=== PATIENT | male | born 1995 | race Caucasian/White ===

== ENCOUNTER 2018-08-27 21:08 | Inpatient (IN) | payer OTHER ==
[~2018-08-27] VITALS: Ht 165.1 cm; Wt 101.2 kg
[2018-08-27] MEDS ORDERED: LEXA1TAB2 PO ×2 (21:12→22:48)
[2018-08-27 21:51] LABS: HEMATOCRIT 43.3 % (42.0-52.0); HEMOGLOBIN 13.4 g/dl (13.5-17.5); MEAN CORPUSCULAR HGB CONC 30.9 g/dl (32.0-36.5); PLATELET COUNT, AUTOMATED 280 10^3/uL (150-450)
[2018-08-27 22:17] LABS: AMPHETAMINES LEVEL URINE NEGATIVE (NEGATIVE); BARBITURATES URINE NEGATIVE (NEGATIVE); BENZODIAZEPINES URINE NEGATIVE (NEGATIVE); CANNABINOIDS URINE NEGATIVE (NEGATIVE); COCAINE METABOLITE URINE NEGATIVE (NEGATIVE); METHADONE URINE NEGATIVE (NEGATIVE); OPIATES URINE NEGATIVE (NEGATIVE); PHENCYCLIDINE URINE NEGATIVE (NEGATIVE)
[2018-08-27 22:27] LABS: ACETAMINOPHEN LEVEL < 2.0 UG/ML (10.0-30.0); ALBUMIN 3.5 GM/DL (3.2-5.2); ALT/SGPT 55 U/L (12-78); BILIRUBIN,DIRECT < 0.1 MG/DL (0.0-0.2); BILIRUBIN,TOTAL 0.2 MG/DL (0.2-1.0); BLOOD UREA NITROGEN 21 MG/DL (7-18); CALCIUM LEVEL 8.9 MG/DL (8.5-10.1); CARBON DIOXIDE LEVEL 28 MEQ/L (21-32); CHLORIDE LEVEL 108 MEQ/L (98-107); CREATININE FOR GFR 1.06 MG/DL (0.70-1.30); ETHYL ALCOHOL (ETHANOL) < 0.003 % (0.000-0.010); GLOMERULAR FILTRATION RATE > 60.0 (>60); GLUCOSE, FASTING 99 MG/DL (70-100); POTASSIUM SERUM 4.4 MEQ/L (3.5-5.1); SALICYLATE LEVEL < 1.7 MG/DL (5.0-30.0); SODIUM LEVEL 143 MEQ/L (136-145); TOTAL PROTEIN 6.5 GM/DL (6.4-8.2)
[2018-08-27] MEDS ORDERED: VENTAER INH (22:48)
[2018-08-27] MEDS ORDERED: FLON1SPR (22:48)
[2018-08-27] MEDS ORDERED: MUCI30TA5 PO (22:48)
[2018-08-27] MEDS ORDERED: CLAR10TA7 PO (22:48)
[2018-08-27] MEDS ORDERED: MAALOX 30 ML SUSP *UDC PO PRN (23:00)
[2018-08-27 23:25] VITALS: BP 119/77
[2018-08-28 06:13] VITALS: BP 106/60
[2018-08-28] MEDS ORDERED: ESCITALOPRAM OXALATE 10 MG TAB (LEXAPRO) PO SCH (09:00)
--- NOTE | 2018-08-28 09:41 | HPEPDOC ---
General Date of Admission Aug 27, 2018 at 22:49 Date of Service: Aug 28, 2018 Attending Physician: DANIEL PICKARD MD Chief Complaint The patient is a 23-year-old male admitted with a reason for visit of Unspecified Depressive Disorder. History of Present Illness Patient is a 23 yo male presenting with depression and suicidal ideation. Patient reports thoughts of taking a whole bottle of his wifes medication- trazodone. On evaluation, he complains only of a left knee pain, which she has had now for 6-7 months. He is prescribed physical therapy treatments by the . He otherwise denies chest pain, weakness, shortness of breath. Home Medications Scheduled Escitalopram Oxalate (Lexapro) 20 Mg Tablet, 20 MG PO DAILY, (Reported) Guaifenesin/Dextromethorphan (Mucinex Dm ER 600-30 mg Tablet) 1 Each Tab.er.12h, 2 TAB PO BID, (Reported) Loratadine (Claritin) 10 Mg Tablet, 10 MG PO DAILY, (Reported) Scheduled PRN Albuterol Sulfate (Ventolin Hfa) 18 Gm Hfa.aer.ad, 2 PUFF INH QID PRN for SHORTNESS OF BREATH, (Reported) Fluticasone Propionate (Flonase Allergy Relief) 9.9 Ml [place].susp, 1 SPRAY NA BID PRN for NASAL CONGESTION, (Reported) Allergies Coded Allergies: No Known Allergies (Unverified , 08/27/18) Past Medical History Medical History Obesity Seasonal allergies Depression Surgical History Denies Family History Father: Amyloidosis, diabetes mellitus, hypertension Mother: Hypertension, hyperlipidemia Social History * Smoker: Denies Alcohol: Denies Drugs: denies A-FIB/CHADSVASC A-FIB History Current/History of A-Fib/PAF?: No Current PO Anticoag Therapy: No Review of Systems Other systems A 10 point pertinent review of systems was completed, negative except as stated in the history of presenting illness. Physical Examination Other physical findings GENERAL: NAD SKIN : Warm, dry intact HEENT: Atraumatic, normocephalic, PERRL, moist mucous membrane CARDIOVASCULAR: Regular rate and rhythm, S1S2, no JVD, no edema, distal pulses + and palpable RESP: CTAB, no accessory muscle use noted ABDOMEN: BS+ non distended non tender MS: no joint deformities NEURO: Alert and oriented x 3, CN2-12 grossly intact PSYCH: no anxiety or agitation, appropriate mood and affect. Vital Signs Vital Signs Date Time Temp Pulse Resp B/P (MAP) Pulse Ox O2 Delivery O2 Flow Rate FiO2 08/28/18 08:48 Room Air 08/28/18 06:13 98.6 56 18 106/60 (75) 08/27/18 23:25 97 Laboratory Data Labs 24H Laboratory Tests 2 08/27/18 21:41: Nucleated Red Blood Cells % (auto) 0.0, Anion Gap 7L, Glomerular Filtration Rate > 60.0, Calcium Level 8.9, Aspartate Amino Transf (AST/SGOT) 19, Alanine Aminotransferase (ALT/SGPT) 55, Alkaline Phosphatase 72, Total Bilirubin 0.2, Direct Bilirubin < 0.1, Total Protein 6.5, Albumin 3.5, Albumin/Globulin Ratio 1.17, Thyroid Stimulating Hormone (TSH) 2.020, Salicylates Level < 1.7L, Acetaminophen Level < 2.0L, Ethyl Alcohol Level < 0.003 08/27/18 21:44: Urine Amphetamines Screen NEGATIVE, Urine Benzodiazepines Screen NEGATIVE, Urine Opiates Screen NEGATIVE, Urine Methadone Screen NEGATIVE, Urine Barbiturates Screen NEGATIVE, Urine Phencyclidine Screen NEGATIVE, Urine Cocaine Metabolite Screen NEGATIVE, Urine Cannabinoids Screen NEGATIVE CBC/BMP Laboratory Tests 08/27/18 21:41 Red Blood Count 6.10, Mean Corpuscular Volume 71.0 L, Mean Corpuscular Hemoglobin 22.0 L, Mean Corpuscular Hemoglobin Concent 30.9 L, Red Cell D istribution Width 14.8 H Assessment/Plan Obesity Depression with suicidal ideation Plan Patient has no underlying medical comorbidities requiring medical follow-up and management. Management of acute presenting symptoms and psychiatric problems by primary team. Reconsult medical team as needed Plan / VTE VTE Prophylaxis Ordered?: No VTE Exclusion Mechanical Proph: Low Risk for VTE STONE GANDHI Aug 28, 2018 09:41
[2018-08-28] MEDS: guaiFENesin ER 600 MG TAB PO SCH ×2 (13:23→20:49)
--- NOTE | 2018-08-28 15:35 | ECGEPIP ---
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
[2018-08-28 18:00] VITALS: BP 112/57
[2018-08-28] MEDS: traZODone 50 MG TAB PO PRN (20:49)
[2018-08-29 06:30] VITALS: BP 115/58
[2018-08-29] MEDS: guaiFENesin ER 600 MG TAB PO SCH ×2 (09:16→20:17)
[2018-08-29] MEDS: ESCITALOPRAM OXALATE 10 MG TAB (LEXAPRO) PO SCH (09:16)
[2018-08-29 18:09] VITALS: BP 116/61
--- NOTE | 2018-08-29 19:29 | REP ---
PA and lateral chest: There are no comparisons. The lung joy are clear. The cardiac size is normal. The aaron, mediastinum, and skeletal structures are unremarkable. Impression: Negative PA and lateral chest. Electronically Signed by Colin Yen MD 08/29/2018 07:20 P
[2018-08-29] MEDS: ARIPiprazole 2 MG TAB PO SCH (20:18)
[2018-08-29] MEDS: traZODone 50 MG TAB PO PRN (20:18)
--- NOTE | 2018-08-29 23:59 | MHHPEPDOC ---
General Date Of Admission: Aug 27, 2018 Legal Status: 9.39 Chief Complaint Increasing depression with SI over financial, marital and work stressors History of Present Illness HISTORY OF THE PRESENT ILLNESS: Patient is a 23 -year-old , male, who, according to ED report: "Pt. reports he has been feeling depressed for past 6-7 months, more so within last month with vague SI until today when he actually thought of taking overdose and had wifes Trazadone bottle of pills in his hand. He states he agreed to come to ER and did not take overdose. He reports he did take 2 Trazadone to help him sleep , stating he does occassionally take wifes Trazadone for sleep. Pt. reports depression/stress due to job. 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 pt. states she has noticed a difference in pt. emotional state, stating he hasbeen very sad and depressed. Pt. denies other stressors. He states he did go to [facility] 2 weeks ago and was prescrbed Lexapro, stating he has been taking it as prescribed" Psychiatric Review of Systems Depression (2 or more weeks): depressed mood, anhedonia (he enjoyed working out nd playing games, watching movies but he doesn't do it anymore, he just lays down and thinks about how he can cope with it), insomnia/hypersomnia, feelings of excess/guilt, feelings of worthlesness (hopeles and helpless besides feeling worthless sometimes but not all the time. he has feelings of worthlessness because everything he does is not enough), decreased energy, appetite changes ("I overate"), psychomotor changes (feels sluggish sometimes), suicidal thoughts Demi (4 or more days of): grandiosity (He says "i knew I was the best but I never looked down onto people"), decreased need for sleep (He says about 1.5 years ago, before joining the he used to have a lot of energy and was able to go without sleep at night and still was able to function next day), still with energy, engages in risky behavior (He had "a lot of unprotected sex" 9he has been tested for STD's) Psychosis: denies PTSD: denies Anxiety: gen/non-specific anxiety, situational anxiety, stressor related anxiety Anxiety/ 6 months or more of: restlessness, keyed up, easily fatigued, irritability, sleep disturbance Past Psychiatric History Previous Psychiatric Diagnosis: Denies Previous Psychiatric Admissions: Denies Suicide Attempts: Denies. he came this time to [facility] because he was about to take Trazodone (his 's medication) but she caught him. he sya he only took 2 tabs Psychiatric Follow-up: He just started going to [facility] 2 weeks ago Psychiatric medications: Lexapro. Past Medical History Medical Problems He thinks he has asthma and bronchitis Head Injury: No Seizures: No Hospitalizations: No Surgeries: No Family Medical/Psychiatric HX Medical Problems Dad passd away in 2016, he had amyloidosis. mom is diabetic, has HTN and [id number]. Dad also had diabetes, high cholesterol and had CHF. Psychiatric Disorders: No Addiction: No Suicide Attemps/Completions: No Addiction History alcohol (very seldom) Social History Childhood: He says his childhood was nice, he grew up with both parents. he has an older brother and they get along. 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 Social Support: , mom, brother, friends Legal: Denies Marital: mariied, he has 3 children from a previous relationship Mental Status Examination General Appearance: well groomed, ds/not appear stated age (looks older), hospital scubs/clothing Build: overweight Demeanor: average, preoccupied Eye Contact: average Activity: anxious Behavior: cooperative Speech: clear, spontaneous, reg/rate,rhythm,volume Mood: depressed, anxious Affect: constricted, congruent, anxious, other (depressed) Thought Process: logical/linear Thought Content (Delusions): none reported Thought Content (Other): none reported Thought Content (Aggressive): none reported Perception (Hallucinations): none reported Perception (Other): none reported Cognition (Impairment of): none reported Cognition(Intelligence Est.): average Oriented: Awake, Alert, Oriented times three Insight: fair Judgment: Poor Psychosis: Denies A-FIB/CHADSVASC A-FIB History Current/History of A-Fib/PAF?: No Current PO Anticoag Therapy: No Age/Risk Factor Scoring CHADSVASC: CHADSVASC Response (Comments) Value Age Risk Factor Age < 65 years old 0 Gender Risk Factor Male 0 Hx of CHF No 0 Hx of HTN No 0 Hx of Stroke/TIA/or VTE No 0 Hx of Diabetes No 0 Hx of Vascular Disease No 0 Total 0 Treatment Treatment ordered: NONE Reason Anticoagulant not given: Not indicated/[id number] Assessment Patient is very depressed, he is hopless, helpless. He has been having problems with his because she can't trust him due to the fact that he has cheated on her several times. 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 He has been receiving Lexapro 20 mgs po daily but she doesn't feel any improvement ( he has used it only for 2 weeks) Initial Treatment Plan 1. Patient was admitted on a [9.39] status. 2. Complete history was obtained. 3. With patients permission, family will be contacted and database will be expanded. 4. Patients medication regimen will be reviewed and changed accordingly. 5. Patient will be provided with protected environment. 6. Patient will be treated with individual, group, and milieu therapies. 7. Patient will receive supportive psych-education. 8. Discharge planning will commence immediately. 9. Outpatient follow-up treatment will be strongly recommended. 10. The initial treatment plan will focus initially on: * Depression. * Anxiety * Risk for suicide. * Substance abuse. ESTIMATED LENGTH OF STAY: 5-7 DAYS. TIME SPENT COUNSELING AND COORDINATING INITIAL CARE: 70 minutes. Vital Signs Vital Signs Date Time Temp Pulse Resp B/P (MAP) Pulse Ox O2 Delivery O2 Flow Rate FiO2 08/28/18 08:48 Room Air 08/28/18 06:13 98.6 56 18 106/60 (75) 08/27/18 23:25 97 Laboratory Data 24H Labs Laboratory Tests 2 08/27/18 21:41: Nucleated Red Blood Cells % (auto) 0.0, Anion Gap 7L, Glomerular Filtration Rate > 60.0, Calcium Level 8.9, Aspartate Amino Transf (AST/SGOT) 19, Alanine Aminotransferase (ALT/SGPT) 55, Alkaline Phosphatase 72, Total Bilirubin 0.2, Direct Bilirubin < 0.1, Total Protein 6.5, Albumin 3.5, Albumin/Globulin Ratio 1.17, Thyroid Stimulating Hormone (TSH) 2.020, Salicylates Level < 1.7L, Acetaminophen Level < 2.0L, Ethyl Alcohol Level < 0.003 08/27/18 21:44: Urine Amphetamines Screen NEGATIVE, Urine Benzodiazepines Screen NEGATIVE, Urine Opiates Screen NEGATIVE, Urine Methadone Screen NEGATIVE, Urine Barbiturates Screen NEGATIVE, Urine Phencyclidine Screen NEGATIVE, Urine Cocaine Metabolite Screen NEGATIVE, Urine Cannabinoids Screen NEGATIVE CBC/BMP Laboratory Tests 08/27/18 21:41 Red Blood Count 6.10, Mean Corpuscular Volume 71.0 L, Mean Corpuscular Hemoglobin 22.0 L, Mean Corpuscular Hemoglobin Concent 30.9 L, Red Cell Distribution Width 14.8 H Medications Scheduled Escitalopram Oxalate (Lexapro) 20 Mg Tablet, 20 MG PO DAILY, (Reported) Guaifenesin/Dextromethorphan (Mucinex Dm ER 600-30 mg Tablet) 1 Each Tab.er.12h, 2 TAB PO BID, (Reported) Loratadine (Claritin) 10 Mg Tablet, 10 MG PO DAILY, (Reported) Scheduled PRN Albuterol Sulfate (Ventolin Hfa) 18 Gm Hfa.aer.ad, 2 PUFF INH QID PRN for SHORTNESS OF BREATH, (Reported) Fluticasone Propionate (Flonase Allergy Relief) 9.9 Ml [place].susp, 1 SPRAY NA BID PRN for NASAL CONGESTION, (Reported) Allergies Coded Allergies: No Known Allergies (Unverified , 08/27/18) RYANN COFFMAN MD Aug 28, 2018 13:07
--- NOTE | 2018-08-30 00:10 | MHIPNPDOC ---
[facility] Progress Note Progress Note DATE OF SERVICE: 08/29/18 HISTORY: Chief Complaint Increasing depression with SI over financial, marital and work stressors History of Present Illness HISTORY OF THE PRESENT ILLNESS: Patient is a 23 -year-old , male, who, according to ED report: "Pt. reports he has been feeling depressed for past 6-7 months, more so within last month with vague SI until today when he actually thought of taking overdose and had wifes Trazadone bottle of pills in his hand. He states he agreed to come to ER and did not take overdose. He reports he did take 2 Trazadone to help him sleep , stating he does occassionally take wifes Trazadone for sleep. Pt. reports depression/stress due to job. 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 pt. states she has noticed a difference in pt. emotional state, stating he hasbeen very sad and depressed. Pt. denies other stressors. He states he did go to [facility] 2 weeks ago and was prescrbed Lexapro, stating he has been taking it as prescribed" VITAL SIGNS: See below. NEW TEST RESULTS: See below CURRENT MEDICATIONS: See below. MENTAL STATUS EXAMINATION: General Appearance: well groomed, ds/not appear stated age (looks older), hospital scubs/clothing Build: overweight Demeanor: average, preoccupied, sad Eye Contact: average/avoidant Activity: cam sitting on his chair, paying attention to our conversation. Receptive, cooperative Behavior: cooperative Speech: clear, spontaneous, reg/rate,rhythm,volume Mood: depressed, anxious Affect: constricted, congruent, anxious, other (depressed) Thought Process: logical/linear Thought Content (Delusions): none reported Thought Content (Other): none reported Thought Content (Aggressive): none reported Perception (Hallucinations): none reported Perception (Other): none reported Cognition (Impairment of): none reported Cognition(Intelligence Est.): average Oriented: Awake, Alert, Oriented times three Insight: fair Judgment: Poor Psychosis: Denies DIAGNOSES: 1. Unspecified mood disorder, r/o bipolar 2 disorder 2. Generalized Anxiety disorder 3. Unspecified trauma/stressor disorder 4. Bereavement ASSESSMENT: The patient sys that he feels as if he is getting worse because he has had time to think about his problems. he says his doesn't trust him because he has cheated on her multiple times. He considers he is a sex addict, he says his father was unfaithful, had multiple women and he thought that was normal he identified with his dad. He says he decided to get because he started dating his and her fter a short dating period (4 months) because he felt lonely and sad after his dad . The patient seems to fulfill criteria for timoteo, although it seems more hypomania. I discussed starting treatment with [facility] as a buster for his AD and he agreed to it. he is very depressed. MANAGEMENT PLAN: As above TIME SPENT: 30 minutes. Vital Signs Vital Signs Date Time Temp Pulse Resp B/P (MAP) Pulse Ox O2 Delivery O2 Flow Rate FiO2 08/29/18 18:09 98.0 72 18 116/61 (79) 08/29/18 08:10 Room Air 08/27/18 23:25 97 Current Medications Current Medications Acetaminophen (Tylenol Tab) 650 mg Q6HP PRN PO HEADACHE or DISCOMFORT; Start 08/27/18 at 23:00 Al Hydrox/Mg Hydrox/Simethicone (Mylanta) 30 ml Q4HP PRN PO HEARTBURN/INDIGESTION; Start 08/27/18 at 23:00 Aripiprazole (AbiLIFY) 2 mg BID PO Last administered on 08/29/18at 20:18; Start 08/29/18 at 21:00 Escitalopram Oxalate (Lexapro) 20 mg DAILY PO Last administered on 08/28/18at 13:23; Start 08/28/18 at 09:00; Stop 08/28/18 at 13:42; Status DC Escitalopram Oxalate (Lexapro) 30 mg DAILY PO Last administered on 08/29/18at 09:16; Start 08/29/18 at 09:00 Guaifenesin (Mucinex Tab Er) 600 mg BID PO Last administered on 08/29/18at 20:17; Start 08/28/18 at 09:00 Home Med (Med Rec Complete!) ASDIRECTED XX ; Start 08/27/18 at 23:00; Stop 08/27/18 at 23:00; Status DC Magnesium Hydroxide (Milk Of Magnesia) 30 ml DAILYPRN PRN PO CONSTIPATION; Start 08/27/18 at 23:00 Trazodone HCl (Desyrel) 50 mg QHSP PRN PO INSOMNIA Last administered on 08/29/18at 20:18; Start 08/27/18 at 23:00 Allergies Coded Allergies: No Known Allergies (Unverified , 08/27/18) RYANN COFFMAN MD Aug 30, 2018 00:00
[2018-08-30 06:43] VITALS: BP 121/59
[2018-08-30] MEDS: ESCITALOPRAM OXALATE 10 MG TAB (LEXAPRO) PO SCH (08:35)
[2018-08-30] MEDS: guaiFENesin ER 600 MG TAB PO SCH ×2 (08:35→20:20)
[2018-08-30] MEDS: ARIPiprazole 2 MG TAB PO SCH ×2 (08:35→20:21)
[2018-08-30 18:00] VITALS: BP 115/54
[2018-08-30] MEDS: traZODone 50 MG TAB PO PRN (20:20)
--- NOTE | 2018-08-30 22:42 | MHIPNPDOC ---
[facility] Progress Note Progress Note DATE OF SERVICE: 08/30/18 Patient is a 23 -year-old , male, who, according to ED report: "Pt. reports he has been feeling depressed for past 6-7 months, more so within last month with vague SI until today when he actually thought of taking overdose and had wifes Trazadone bottle of pills in his hand. He states he agreed to come to ER and did not take overdose. He reports he did take 2 Trazadone to help him sleep , stating he does occassionally take wifes Trazadone for sleep. Pt. reports depression/stress due to job. 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 pt. states she has noticed a difference in pt. emotional state, stating he hasbeen very sad and depressed. Pt. denies other stressors. He states he did go to [facility] 2 weeks ago and was prescrbed Lexapro, stating he has been taking it as prescribed" VITAL SIGNS: See below. NEW TEST RESULTS: See below CURRENT MEDICATIONS: See below. MENTAL STATUS EXAMINATION: General Appearance: well groomed, ds/not appear stated age (looks older), hospital scrubs/clothing Build: overweight Demeanor: Cooperative Eye Contact: average/avoidant Activity: calm sitting on his chair, receptive,looking sad Behavior: cooperative Speech: clear, spontaneous, reg/rate,rhythm,volume Mood: depressed, anxious Affect: constricted, congruent, anxious, other (depressed) Thought Process: logical/linear Thought Content (Delusions): none reported Thought Content (Other): none reported Thought Content (Aggressive): none reported Perception (Hallucinations): none reported Perception (Other): none reported Cognition (Impairment of): none reported Cognition(Intelligence Est.): average Oriented: Awake, Alert, Oriented times three Insight: fair Judgment: Poor Psychosis: Denies DIAGNOSES: 1. Unspecified mood disorder, r/o bipolar 2 disorder 2. Generalized Anxiety disorder 3. Unspecified trauma/stressor disorder 4. Bereavement ASSESSMENT: Mental status exam has not changed much since yesterday. Spoke about his marriage, recommended to go to marital counseling. No medications side effects were reported. Denies SI, HI, AV hallucinations, delusions MANAGEMENT PLAN: Continue Lexapro and Abilify TIME SPENT: 30 minutes. Vital Signs Vital Signs Date Time Temp Pulse Resp B/P (MAP) Pulse Ox O2 Delivery O2 Flow Rate FiO2 08/30/18 18:00 98.4 73 16 115/54 (74) 08/29/18 08:10 Room Air 08/27/18 23:25 97 Current Medications Current Medications Acetaminophen (Tylenol Tab) 650 mg Q6HP PRN PO HEADACHE or DISCOMFORT; Start 08/27/18 at 23:00 Al Hydrox/Mg Hydrox/Simethicone (Mylanta) 30 ml Q4HP PRN PO HEARTB URN/INDIGESTION; Start 08/27/18 at 23:00 Aripiprazole (AbiLIFY) 2 mg BID PO Last administered on 08/30/18at 20:21; Start 08/29/18 at 21:00 Escitalopram Oxalate (Lexapro) 20 mg DAILY PO Last administered on 08/28/18at 13:23; Start 08/28/18 at 09:00; Stop 08/28/18 at 13:42; Status DC Escitalopram Oxalate (Lexapro) 30 mg DAILY PO Last administered on 08/30/18at 08:35; Start 08/29/18 at 09:00 Guaifenesin (Mucinex Tab Er) 600 mg BID PO Last administered on 08/30/18at 20:20; Start 08/28/18 at 09:00 Home Med (Med Rec Complete!) ASDIRECTED XX ; Start 08/27/18 at 23:00; Stop 08/27/18 at 23:00; Status DC Magnesium Hydroxide (Milk Of Magnesia) 30 ml DAILYPRN PRN PO CONSTIPATION; Start 08/27/18 at 23:00 Trazodone HCl (Desyrel) 50 mg QHSP PRN PO INSOMNIA Last administered on 08/30/18at 20:20; Start 08/27/18 at 23:00 Allergies Coded Allergies: No Known Allergies (Unverified , 08/27/18) RYANN COFFMAN MD Aug 30, 2018 22:42
[2018-08-31 07:13] VITALS: BP 95/56
[2018-08-31] MEDS: ESCITALOPRAM OXALATE 10 MG TAB (LEXAPRO) PO SCH (09:21)
[2018-08-31] MEDS: ARIPiprazole 2 MG TAB PO SCH ×2 (09:21→20:46)
[2018-08-31] MEDS: guaiFENesin ER 600 MG TAB PO SCH ×2 (09:21→20:46)
[2018-08-31 18:17] VITALS: BP 111/56
[2018-08-31] MEDS: traZODone 50 MG TAB PO PRN (22:24)
--- NOTE | 2018-08-31 23:15 | MHIPNPDOC ---
[facility] Progress Note Progress Note DATE OF SERVICE: 08/31/18 Patient is a 23 -year-old , male, who, according to ED report: "Pt. reports he has been feeling depressed for past 6-7 months, more so within last month with vague SI until today when he actually thought of taking overdose and had wifes Trazadone bottle of pills in his hand. He states he agreed to come to ER and did not take overdose. He reports he did take 2 Trazadone to help him sleep , stating he does occassionally take wifes Trazadone for sleep. Pt. reports depression/stress due to job. 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 pt. states she has noticed a difference in pt. emotional state, stating he hasbeen very sad and depressed. Pt. denies other stressors. He states he did go to [facility] 2 weeks ago and was prescrbed Lexapro, stating he has been taking it as prescribed" VITAL SIGNS: See below. NEW TEST RESULTS: See below CURRENT MEDICATIONS: See below. MENTAL STATUS EXAMINATION: General Appearance: well groomed, ds/not appear stated age (looks older), hospital scrubs/clothing Build: overweight Demeanor: Cooperative Eye Contact: average/avoidant Activity: calm sitting on his chair, receptive,looking sad Behavior: cooperative Speech: clear, spontaneous, reg/rate,rhythm,volume Mood: depressed, anxious Affect: constricted, congruent, anxious, other (depressed) Thought Process: logical/linear Thought Content (Delusions): none reported Thought Content (Other): none reported Thought Content (Aggressive): none reported Perception (Hallucinations): none reported Perception (Other): none reported Cognition (Impairment of): none reported Cognition(Intelligence Est.): average Oriented: Awake, Alert, Oriented times three Insight: fair Judgment: Poor Psychosis: Denies DIAGNOSES: 1. Unspecified mood disorder, r/o bipolar 2 disorder 2. Generalized Anxiety disorder 3. Unspecified trauma/stressor disorder 4. Bereavement ASSESSMENT: Yousef is still depressed, I will increase his Abilify to 5 mgs Po QHS and 2 mgs Po QAM. He is more insightful, has attended some groups. If he doesn't show much improvement, I think he would be a candidate fo [facility] care if [facility] and his MARIELY agrees to it. MANAGEMENT PLAN: Continue Lexapro and Abilify TIME SPENT: 30 minutes. Vital Signs Vital Signs Date Time Temp Pulse Resp B/P (MAP) Pulse Ox O2 Delivery O2 Flow Rate FiO2 08/31/18 18:17 98.7 71 18 111/56 (74) 08/29/18 08:10 Room Air 08/27/18 23:25 97 Current Medications Current Medications Acetaminophen (Tylenol Tab) 650 mg Q6HP PRN PO HEADACHE or DISCOMFORT; Start 08/27/18 at 23:00 Al Hydrox/Mg Hydrox/Simethicone (Mylanta) 30 ml Q4HP PRN PO HEARTBURN/INDIGESTION; Start 08/27/18 at 23:00 Aripiprazole (AbiLIFY) 2 mg BID PO Last administered on 08/31/18at 20:46; Start 08/29/18 at 21:00 Escitalopram Oxalate (Lexapro) 20 mg DAILY PO Last administered on 08/28/18at 13:23; Start 08/28/18 at 09:00; Stop 08/28/18 at 13:42; Status DC Escitalopram Oxalate (Lexapro) 30 mg DAILY PO Last administered on 08/31/18at 09:21; Start 08/29/18 at 09:00 Guaifenesin (Mucinex Tab Er) 600 mg BID PO Last administered on 08/31/18at 20:46; Start 08/28/18 at 09:00 Home Med (Med Rec Complete!) ASDIRECTED XX ; Start 08/27/18 at 23:00; Stop 08/27/18 at 23:00; Status DC Magnesium Hydroxide (Milk Of Magnesia) 30 ml DAILYPRN PRN PO CONSTIPATION; Start 08/27/18 at 23:00 Trazodone HCl (Desyrel) 50 mg QHSP PRN PO INSOMNIA Last administered on 08/31/18at 22:24; Start 08/27/18 at 23:00 Allergies Coded Allergies: No Known Allergies (Unverified , 08/27/18) RYANN COFFMAN MD Aug 31, 2018 23:15
[2018-09-01 06:40] VITALS: BP 97/51
[2018-09-01] MEDS: guaiFENesin ER 600 MG TAB PO SCH ×2 (09:12→20:24)
[2018-09-01] MEDS: ESCITALOPRAM OXALATE 10 MG TAB (LEXAPRO) PO SCH (09:12)
[2018-09-01 18:00] VITALS: BP 136/65
[2018-09-01] MEDS: traZODone 50 MG TAB PO PRN (20:24)
[2018-09-02 06:42] VITALS: BP 100/59
[2018-09-02] MEDS: guaiFENesin ER 600 MG TAB PO SCH ×2 (09:03→20:49)
[2018-09-02] MEDS: ESCITALOPRAM OXALATE 10 MG TAB (LEXAPRO) PO SCH (09:04)
[2018-09-02 18:00] VITALS: BP 134/64
[2018-09-02] MEDS: traZODone 50 MG TAB PO PRN (20:49)
[2018-09-03 06:55] VITALS: BP 105/51
[2018-09-03] MEDS: guaiFENesin ER 600 MG TAB PO SCH ×2 (08:53→21:37)
[2018-09-03] MEDS: ESCITALOPRAM OXALATE 10 MG TAB (LEXAPRO) PO SCH (08:53)
[2018-09-03 18:18] VITALS: BP 120/70
[2018-09-03] MEDS: traZODone 50 MG TAB PO PRN (21:37)
[2018-09-04 06:41] VITALS: BP 111/54
--- NOTE | 2018-09-04 08:17 | MHIPNPDOC ---
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 Interval History The patient met with today. His history's explored as well as the symptoms that have brought him to the inpatient unit. Discussion and counseling is given as well as reflective listening towards his experience with the as well as the core of his depression. He describes having great loss of interest, fatigue, motivation problems and concentration focus deficits as well as suicidal thoughts that have remained resistant to treatment at this time. He reports that the current medication has not done much to clear the symptoms. He's been attempting to go to groups and has been attending some no behavioral outbursts on the unit. Review Of Systems Depression: As above. Anxiety: The patient reports excessive worry and constant worry about the future related to his job. This's a point, where he feels irritated and keyed up constantly. Demi: The patient demonstrates no signs or symptoms of demi on the unit. Psychotic: The patient demonstrates no signs or symptoms of demi on the unit. Normal review. Vital Signs Reviewed. Mental Status Examination General: Mildly disheveled Speech: Spontaneous and fluid Thought processes: Pessimistic MSK: Smooth and coordinated gait, no signs of tremors or involuntary orofacial movements Thought content: Future orientated Abstract reasoning, and computation: Intact Description of associations: Intact Description of abnormal or psychotic thoughts: Admits to suicidal thoughts without a plan at this time. Denies homicidal ideation. Judgment: Fair to poor Insight: Fair to poor Orientation: Alert and orientated 3 Cognition: Grossly normal Recent and remote memory: Intact Attention span and concentration: Intact Fund of knowledge: Adequate Mood: "Bad" Affect: Profoundly dysthymic with restricted/blunt affect Diagnoses MDD, severe without psychotic features or recurrent: Worsening. Body dysmorphia: Worsening. Assessment and Plan The patient is a 23-year-old man with a history of severe depression due to psychosocial stressors as well as complex internalization of body image standards, is currently worsening as medication regimen will likely need a medication change to address this. Discontinue Abilify daytime dose 2.5, continue nighttime dose of 5 mg at this time. Continue Lexapro 30 mg at this time, despite that the patient reports some side effects of erectile problems and libido changes on it as well as headaches. We'll look to discontinue and titrate off. Start Wellbutrin 150 mg extended-release daily. Discussed the risks, benefits as well as potential side effects, both common and rare. The patient was given this option among others and selected it. Disposition The patient will need further inpatient treatment to address his severe depression and suicidal thoughts. Time Spent 45 minutes of [id number] time with greater than 50% counseling/coordination of care. Vital Signs Vital Signs Date Time Temp Pulse Resp B/P (MAP) Pulse Ox O2 Delivery O2 Flow Rate FiO2 09/03/18 18:18 97.7 84 16 120/70 (87) 08/29/18 08:10 Room Air Current Medications Current Medications Acetaminophen (Tylenol Tab) 650 mg Q6HP PRN PO HEADACHE or DISCOMFORT; Start 08/27/18 at 23:00 Al Hydrox/Mg Hydrox/Simethicone (Mylanta) 30 ml Q4HP PRN PO HEARTBURN/IN DIGESTION; Start 08/27/18 at 23:00 Aripiprazole (AbiLIFY) 2 mg BID PO Last administered on 08/31/18at 20:46; Start 08/29/18 at 21:00; Stop 08/31/18 at 23:24; Status DC Aripiprazole (AbiLIFY) 2.5 mg QAM PO Last administered on 09/03/18at 08:53; Start 09/01/18 at 09:00; Stop 09/03/18 at 18:22; Status DC Aripiprazole (AbiLIFY) 5 mg QHS PO Last administered on 09/02/18at 20:49; Start 09/01/18 at 21:00 Bupropion HCl (Wellbutrin Xl) 150 mg DAILY PO ; Start 09/04/18 at 09:00 Escitalopram Oxalate (Lexapro) 20 mg DAILY PO Last administered on 08/28/18at 13:23; Start 08/28/18 at 09:00; Stop 08/28/18 at 13:42; Status DC Escitalopram Oxalate (Lexapro) 30 mg DAILY PO Last administered on 09/03/18at 08:53; Start 08/29/18 at 09:00 Guaifenesin (Mucinex Tab Er) 600 mg BID PO Last administered on 09/03/18at 08:53; Start 08/28/18 at 09:00 Home Med (Med Rec Complete!) ASDIRECTED XX ; Start 08/27/18 at 23:00; Stop 08/27/18 at 23:00; Status DC Magnesium Hydroxide (Milk Of Magnesia) 30 ml DAILYPRN PRN PO CONSTIPATION; Start 08/27/18 at 23:00 Trazodone HCl (Desyrel) 50 mg QHSP PRN PO INSOMNIA Last administered on 09/02/18at 20:49; Start 08/27/18 at 23:00 Allergies Coded Allergies: No Known Allergies (Unverified , 08/27/18) ACOSTA WONG DO Sep 03, 2018 19:29
[2018-09-04] MEDS: guaiFENesin ER 600 MG TAB PO SCH ×2 (09:20→22:35)
[2018-09-04] MEDS: buPROPion **XL** TABLET 150MG (WELLBUTRIN XL) PO SCH (09:20)
[2018-09-04] MEDS: ESCITALOPRAM OXALATE 10 MG TAB (LEXAPRO) PO SCH (09:20)
[2018-09-04] MEDS ORDERED: PHENYLEPHRINE 0.25% NASAL SPR 15 ML PRN (16:45)
--- NOTE | 2018-09-04 17:02 | MHIPNPDOC ---
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 Interval History The patient was met with today where he describes his sleep was somewhat more restful this evening, but he still has great difficulty with loss of interest, f atigue and anhedonia. He has not tried the Wellbutrin yet and has been discontinued on the Abilify for the morning dose. 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 Currently he would do well in a long-term treatment facility as his depression will take some time to resolve. Review Of Systems Depression: As above. Demi: The patient demonstrates no signs or symptoms of demi on the unit. Psychotic: The patient demonstrates no signs or symptoms of demi on the unit. Patient denies any tremors or other side effects of medication not elucidated on this previous note. Vital Signs Reviewed. Mental Status Examination General: Mildly disheveled Speech: Spontaneous and fluid Thought processes: Pessimistic MSK: Smooth and coordinated gait, no signs of tremors or involuntary orofacial movements Thought content: Future orientated Abstract reasoning, and computation: Intact Description of associations: Intact Description of abnormal or psychotic thoughts: Admits to suicidal thoughts without a plan at this time. Denies homicidal ideation. Judgment: Fair to poor Insight: Fair to poor Orientation: Alert and orientated 3 Cognition: Grossly normal Recent and remote memory: Intact Attention span and concentration: Intact Fund of knowledge: Adequate Mood: "Bad" Affect: Profoundly dysthymic with restricted/blunt affect Diagnoses MDD, severe without psychotic features or recurrent: Worsening. Body dysmorphia: Worsening. Assessment and Plan The patient is a 23-year-old man with a history of severe depression due to psychosocial stressors as well as complex internalization of body image stand ards, is currently worsening as medication regimen will likely need a medication change to address this. Continue wellbutrin 150mg daily, cut QHS of abilify to 2.5mg nightly Time Spent 15 mins Vital Signs Vital Signs Date Time Temp Pulse Resp B/P (MAP) Pulse Ox O2 Delivery O2 Flow Rate FiO2 09/04/18 06:41 97.6 66 18 111/54 (73) 08/29/18 08:10 Room Air Current Medications Current Medications Acetaminophen (Tylenol Tab) 650 mg Q6HP PRN PO HEADACHE or DISCOMFORT; Start 08/27/18 at 23:00 Al Hydrox/Mg Hydrox/Simethicone (Mylanta) 30 ml Q4HP PRN PO HEARTBURN/INDIGESTION; Start 08/27/18 at 23:00 Aripiprazole (AbiLIFY) 2 mg BID PO Last administered on 08/31/18at 20:46; Start 08/29/18 at 21:00; Stop 08/31/18 at 23:24; Status DC Aripiprazole (AbiLIFY) 2.5 mg QAM PO Last administered on 09/03/18at 08:53; Start 09/01/18 at 09:00; Stop 09/03/18 at 18:22; Status DC Aripiprazole (AbiLIFY) 2.5 mg QHS PO ; Start 09/04/18 at 21:00 Aripiprazole (AbiLIFY) 5 mg QHS PO Last administered on 09/03/18at 21:37; Start 09/01/18 at 21:00; Stop 09/04/18 at 09:04; Status DC Bupropion HCl (Wellbutrin Xl) 150 mg DAILY PO Last administered on 09/04/18at 09:20; Start 09/04/18 at 09:00 Escitalopram Oxalate (Lexapro) 20 mg DAILY PO Last administered on 08/28/18at 13:23; Start 08/28/18 at 09:00; Stop 08/28/18 at 13:42; Status DC Escitalopram Oxalate (Lexapro) 30 mg DAILY PO Last administered on 09/04/18 09:20; Start 08/29/18 at 09:00 Guaifenesin (Mucinex Tab Er) 600 mg BID PO Last administered on 09/04/18at 09:20; Start 08/28/18 at 09:00 Home Med (Med Rec Complete!) ASDIRECTED XX ; Start 08/27/18 at 23:00; Stop 08/27/18 at 23:00; Status DC Magnesium Hydroxide (Milk Of Magnesia) 30 ml DAILYPRN PRN PO CONSTIPATION; Start 08/27/18 at 23:00 Phenylephrine HCl (Neosynephrine 0.25% Nasal [place]) 2 spray Q4HP PRN NA NASAL CONGESTION; Start 09/04/18 at 16:45 Trazodone HCl (Desyrel) 50 mg QHSP PRN PO INSOMNIA Last administered on 09/03/18at 21:37; Start 08/27/18 at 23:00 Allergies Coded Allergies: No Known Allergies (Unverified , 08/27/18) ACOSTA WONG DO Sep 04, 2018 17:02
[2018-09-04 18:00] VITALS: BP 141/73
[2018-09-04 19:39] VITALS: BP 141/73
[2018-09-04] MEDS: traZODone 50 MG TAB PO PRN (22:36)
[2018-09-05 06:00] VITALS: BP 103/59
--- NOTE | 2018-09-05 07:56 | MHIPNPDOC ---
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 Interval History The patient's met with today. He describes his depression is improving somewhat with the start of the Wellbutrin. He notes a headache yesterday and has noticed some difficulty starting his urinary stream since trying the Wellbutrin for day 2. He is unsure if this is related, he does report having unprotected sex with his prior to coming into the unit and consents a urinalysis and GC/Chlamydia screen. The patient will discuss and inform his provider if it changes. His outpatient behavioral health team wishes this provider to do psychometric testing as his case is fairly complex and wouldn't help justify long-term treatment at his current juncture. The patient is very amenable to this and it is highly indicated. Review Of Systems Patient continues to endorse depressed mood with fatigue and loss of Interest as well as excessive worry about his life and his ability to attend the needs. Psychotherapy None at this visit Vital Signs Reviewed. Mental Status Examination General: Mildly disheveled Speech: Spontaneous and fluid Thought processes: Pessimistic MSK: Smooth and coordinated gait, no signs of tremors or involuntary orofacial movements Thought content: Future orientated Abstract reasoning, and computation: Intact Description of associations: Intact Description of abnormal or psychotic thoughts: Admits to suicidal thoughts without a plan at this time. Denies homicidal ideation. Judgment: Fair to poor Insight: Fair to poor Orientation: Alert and orientated 3 Cognition: Grossly normal Recent and remote memory: Intact Attention span and concentration: Intact Fund of knowledge: Adequate Mood: "Bad" Affect: Profoundly dysthymic with restricted/blunt affect Diagnoses Major depressive disorder, severe, recurrent without psychotic features: Improving. Body dysmorphic disorder: Worsening. Assessment and Plan The patient is a 23-year-old man with a history of severe depression due to psychosocial stressors as well as complex internalization of body image standards, is currently worsening as medication regimen will likely need a medication change to address this. The patient will be increased to 300 mg of Wellbutrin extended-release daily wit h monitoring of urinary function, urinalysis in GC/chlamydia ordered. Will discontinue Abilify 2.5 mg QHS this time, is likely unhelpful. Continuing Lexapro 30 mg daily at this time, but potential to change will perform psychometric evaluation in the next few days given the request from [facility]. Disposition The patient will need further inpatient treatment to address his severe depression and suicidal thoughts. Time Spent 15 min of [id number] time spent. Vital Signs Vital Signs Date Time Temp Pulse Resp B/P (MAP) Pulse Ox O2 Delivery O2 Flow Rate FiO2 09/05/18 06:00 97.2 64 12 103/59 (74) 09/04/18 19:39 97 Current Medications Current Medications Acetaminophen (Tylenol Tab) 650 mg Q6HP PRN PO HEADACHE or DISCOMFORT; Start 08/27/18 at 23:00 Al Hydrox/Mg Hydrox/Simethicone (Mylanta) 30 ml Q4HP PRN PO HEARTBURN/INDIGESTION; Start 08/27/18 at 23:00 Aripiprazole (AbiLIFY) 2 mg BID PO Last administered on 08/31/18at 20:46; Start 08/29/18 at 21:00; Stop 08/31/18 at 23:24; Status DC Aripiprazole (AbiLIFY) 2.5 mg QAM PO Last administered on 09/03/18at 08:53; Start 09/01/18 at 09:00; Stop 09/03/18 at 18:22; Status DC Aripiprazole (AbiLIFY) 2.5 mg QHS PO Last administered on 09/04/18at 22:35; Start 09/04/18 at 21:00 Aripiprazole (AbiLIFY) 5 mg QHS PO Last administered on 09/03/18at 21:37; Start 09/01/18 at 21:00; Stop 09/04/18 at 09:04; Status DC Bupropion HCl (Wellbutrin Xl) 150 mg DAILY PO Last administered on 09/04/18at 09:20; Start 09/04/18 at 09:00 Escitalopram Oxalate (Lexapro) 20 mg DAILY PO Last administered on 08/28/18at 13:23; Start 08/28/18 at 09:00; Stop 08/28/18 at 13:42; Status DC Escitalopram Oxalate (Lexapro) 30 mg DAILY PO Last administered on 09/04/18at 09:20; Start 08/29/18 at 09:00 Guaifenesin (Mucinex Tab Er) 600 mg BID PO Last administered on 09/04/18at 22:35; Start 08/28/18 at 09:00 Home Med (Med Rec Complete!) ASDIRECTED XX ; Start 08/27/18 at 23:00; Stop 08/27/18 at 23:00; Status DC Magnesium Hydroxide (Milk Of Magnesia) 30 ml DAILYPRN PRN PO CONSTIPATION; Start 08/27/18 at 23:00 Phenylephrine HCl (Neosynephrine 0.25% Nasal [place]) 2 spray Q4HP PRN NA NASAL CONGESTION; Start 09/04/18 at 16:45 Trazodone HCl (Desyrel) 50 mg QHSP PRN PO INSOMNIA Last administered on 09/04/18at 22:36; Start 08/27/18 at 23:00 Allergies Coded Allergies: No Known Allergies (Unverified , 08/27/18) ACOSTA WONG DO Sep 05, 2018 07:56
[2018-09-05] MEDS: guaiFENesin ER 600 MG TAB PO SCH ×2 (08:49→20:54)
[2018-09-05] MEDS: buPROPion **XL** TABLET 150MG (WELLBUTRIN XL) PO SCH (08:49)
[2018-09-05] MEDS: ESCITALOPRAM OXALATE 10 MG TAB (LEXAPRO) PO SCH (08:49)
[2018-09-05] MEDS: ACETAMINOPHEN TAB 650MG DOSE (2X325MG) PO PRN (09:38)
[2018-09-05] MEDS ORDERED: FEXOFENADINE 60 MG TAB PO ONE (12:30)
[2018-09-05 18:16] VITALS: BP 112/50
[2018-09-06] MEDS: traZODone 50 MG TAB PO PRN ×2 (00:04→23:10)
--- NOTE | 2018-09-06 05:51 | MHIPNPDOC ---
[facility] Progress Note Progress Note DATE OF SERVICE: 09/06/18 HISTORY: . VITAL SIGNS: See below. NEW TEST RESULTS: . CURRENT MEDICATIONS: See below. MENTAL STATUS EXAMINATION: Patient is a -year old male, who is . Speech: Is . Language skills are . Thought processes including: . Thought content: . Abstract reasoning, and computation: . Description of associa tions: . Description of abnormal or psychotic thoughts: . Judgment: . Insight: [very limited, good, fair. poor]. Orientation: . Recent and remote memory: . Attention span and concentration: . Language: . Fund of knowledge: . Mood: . Affect: . DIAGNOSES: 1. . 2. . 3. . ASSESSMENT: MANAGEMENT PLAN: . TIME SPENT: minutes. Vital Signs Vital Signs Date Time Temp Pulse Resp B/P (MAP) Pulse Ox O2 Delivery O2 Flow Rate FiO2 09/05/18 18:16 98.2 75 16 112/50 (70) 09/04/18 19:39 97 Current Medications Current Medications Acetaminophen (Tylenol Tab) 650 mg Q6HP PRN PO HEADACHE or DISCOMFORT Last administered on 09/05/18at 09:38; Start 08/27/18 at 23:00 Al Hydrox/Mg Hydrox/Simethicone (Mylanta) 30 ml Q4HP PRN PO HEARTBURN/INDIGESTION; Start 08/27/18 at 23:00 Aripiprazole (AbiLIFY) 2 mg BID PO Last administered on 08/31/18at 20:46; Start 08/29/18 at 21:00; Stop 08/31/18 at 23:24; Status DC Aripiprazole (AbiLIFY) 2.5 mg QAM PO Last administered on 09/03/18at 08:53; Start 09/01/18 at 09:00; Stop 09/03/18 at 18:22; Status DC Aripiprazole (AbiLIFY) 2.5 mg QHS PO Last administered on 09/04/18at 22:35; Start 09/04/18 at 21:00; Stop 09/05/18 at 12:27; Status DC Aripiprazole (AbiLIFY) 5 mg QHS PO Last administered on 09/03/18at 21:37; Start 09/01/18 at 21:00; Stop 09/04/18 at 09:04; Status DC Bupropion HCl (Wellbutrin Xl) 150 mg DAILY PO Last administered on 09/05/18at 08:49; Start 09/04/18 at 09:00; Stop 09/05/18 at 12:27; Status DC Bupropion HCl (Wellbutrin Xl) 300 mg DAILY PO ; Start 09/06/18 at 09:00 Escitalopram Oxalate (Lexapro) 20 mg DAILY PO Last administered on 08/28/18at 13:23; Start 08/28/18 at 09:00; Stop 08/28/18 at 13:42; Status DC Escitalopram Oxalate (Lexapro) 30 mg DAILY PO Last administered on 09/05/18at 08:49; Start 08/29/18 at 09:00 Fexofenadine HCl (Sho) 180 mg QAM PO ; Start 09/06/18 at 09:00 Guaifenesin (Mucinex Tab Er) 600 mg BID PO Last administered on 09/05/18at 20:54; Start 08/28/18 at 09:00 Home Med (Med Rec Complete!) ASDIRECTED XX ; Start 08/27/18 at 23:00; Stop 08/27/18 at 23:00; Status DC Magnesium Hydroxide (Milk Of Magnesia) 30 ml DAILYPRN PRN PO CONSTIPATION; Start 08/27/18 at 23:00 Phenylephrine HCl (Neosynephrine 0.25% Nasal [place]) 2 spray Q4HP PRN NA NASAL CONGESTION; Start 09/04/18 at 16:45 Trazodone HCl (Desyrel) 50 mg QHSP PRN PO INSOMNIA Last administered on 09/06/18at 00:04; Start 08/27/18 at 23:00 Allergies Coded Allergies: No Known Allergies (Unverified , 08/27/18) ACOSTA WONG DO Sep 06, 2018 05:51
[2018-09-06 06:28] VITALS: BP 104/52
[2018-09-06] MEDS: guaiFENesin ER 600 MG TAB PO SCH ×2 (09:12→21:05)
[2018-09-06] MEDS: ESCITALOPRAM OXALATE 10 MG TAB (LEXAPRO) PO SCH (09:12)
[2018-09-06] MEDS: buPROPion **XL** TABLET 150MG (WELLBUTRIN XL) PO SCH (09:12)
[2018-09-06] MEDS: FEXOFENADINE 60 MG TAB PO SCH (09:12)
[2018-09-06 15:28] LABS: APPEARANCE, URINE CLEAR (CLEAR); BACTERIA, URINE AUTO NEGATIVE (NEGATIVE); BILIRUBIN, URINE AUTO NEGATIVE (NEGATIVE); BLOOD, URINE BLOOD NEGATIVE (NEGATIVE); COLOR, URINE YELLOW (YELLOW); GLUCOSE, URINE (UA) AUTO NEGATIVE (NEGATIVE); KETONE, URINE AUTO NEGATIVE (NEGATIVE); LEUKOCYTE ESTERASE, URINE AUTO NEGATIVE (NEGATIVE); MUCUS, URINE SMALL (NEGATIVE); NITRITE, URINE AUTO NEGATIVE (NEGATIVE); PROTEIN, URINE AUTO NEGATIVE (NEGATIVE); RBC, URINE AUTO 0 /HPF (0-3); SPECIFIC GRAVITY URINE AUTO 1.026 (1.002-1.035); SQUAMOUS EPITHELIAL CELL UR AU 0 /HPF (0-6); WBC, URINE AUTO 1 /HPF (0-3)
[2018-09-06 16:45] LABS: CHLAMYDIA DNA AMPLIFICATION NEGATIVE (NEGATIVE); GC DNA AMPLIFICATION NEGATIVE (NEGATIVE)
[2018-09-06] MEDS: ACETAMINOPHEN TAB 650MG DOSE (2X325MG) PO PRN (17:21)
[2018-09-06 18:05] VITALS: BP 105/59
[2018-09-07 06:00] VITALS: BP 125/55
[2018-09-07] MEDS: ESCITALOPRAM OXALATE 10 MG TAB (LEXAPRO) PO SCH (09:24)
[2018-09-07] MEDS: buPROPion **XL** TABLET 150MG (WELLBUTRIN XL) PO SCH (09:24)
[2018-09-07] MEDS: guaiFENesin ER 600 MG TAB PO SCH ×2 (09:24→20:49)
[2018-09-07] MEDS: FEXOFENADINE 60 MG TAB PO SCH (09:25)
--- NOTE | 2018-09-07 12:52 | MHIPNPDOC ---
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 Interval History Patient has met with today. He describes that he has been attempting to socialize. He has been noted to be socializing with others better. He reports that the Wellbutrin is somewhat helpful for his depression, but he does note that he feels much more irritable at times and anxious. At other times, he has been socializing well without any problems on the unit. Review Of Systems Denies any dysuria or urinary symptoms at this time. Reports mild improvement in low mood but does report some increased anxiety/irritability since starting the Wellbutrin at 300. Psychotherapy None on this visit. Vital Signs Reviewed. Mental Status Examination The patient has met with in the office. His hygiene is fair. He is dressed in street clothes. His affect is less dysthymic from previous with a improved range. Thought process linear. Denies any suicidal ideation at this time. Denies any homicidal ideation, auditory hallucinations or paranoid thought content. No psychomotor changes. Cognition grossly intact. Concentration and attention intact. Fund of knowledge adequate. Recent, remote and distant memory intact. Judgment and insight improving. Mood "better." Diagnoses Major depressive disorder disorder, severe without psychotic features:improving Worsening new paragraph body dysmorphic disorder: worsening. Assessment and Plan The patient is a 23-year-old man with a history of severe depression due to psychosocial stressors as well as complex internalization of body image standards, is currently worsening as medication regimen will likely need a [facility] change to address this. The patient will be continued on Wellbutrin 300 mg of extended release daily. He is reporting some mood variation, but overall improvement of his depression. His GC, chlamydia was negative and his urinalysis was unremarkable. He reports the potential side effect of urinary hesitancy has dissipated, will continue Lexapro 30 mg at this time. Psychometric evaluation was performed partially during this visit, but will need another session in order to get the full range of testing for evaluation. The plan is still for long-term inpatient to address the really severe depression and body dysmorphia. Disposition The patient will need further inpatient treatment to address his severe depression and suicidal thoughts. Time Spent 15 mins Vital Signs Vital Signs Date Time Temp Pulse Resp B/P (MAP) Pulse Ox O2 Delivery O2 Flow Rate FiO2 09/07/18 06:00 97.7 65 16 125/55 (78) 09/04/18 19:39 97 Laboratory Data 24H Labs Laboratory Tests 2 09/06/18 15:00: Urine Appearance CLEAR, Urine Color YELLOW, Urine pH 6.0, Urine Specific [place] 1.026, Urine Protein NEGATIVE, Urine Glucose (UA) NEGATIVE, Urine Ketones NEGATIVE, Urine Urobilinogen 2.0H, Urine Bilirubin NEGATIVE, Urine Leukocyte Esterase NEGATIVE, Urine Blood NEGATIVE, Urine Nitrite NEGATIVE, Urine WBC (Auto) 1, Urine RBC (Auto) 0, Urine Hyaline Casts (Auto) 0, Urine Bacteria (Auto) NEGATIVE, Urine Squamous Epithelial Cells 0, Urine Mucus (Auto) SMALL, Urine Sperm (Auto) , Chlamydia trachomatis DNA (ANTONIO) NEGATIVE, Neisseria gonorrhoeae DNA (ANTONIO) NEGATIVE Current Medications Current Medications Acetaminophen (Tylenol Tab) 650 mg Q6HP PRN PO HEADACHE or DISCOMFORT Last administered on 09/06/18at 17:21; Start 08/27/18 at 23:00 Al Hydrox/Mg Hydrox/Simethicone (Mylanta) 30 ml Q4HP PRN PO HEARTBURN/INDIGESTION; Start 08/27/18 at 23:00 Aripiprazole (AbiLIFY) 2 mg BID PO Last administered on 08/31/18at 20:46; Start 08/29/18 at 21:00; Stop 08/31/18 at 23:24; Status DC Aripiprazole (AbiLIFY) 2.5 mg QAM PO Last administered on 09/03/18at 08:53; Start 09/01/18 at 09:00; Stop 09/03/18 at 18:22; Status DC Aripiprazole (AbiLIFY) 2.5 mg QHS PO Last administered on 09/04/18at 22:35; Start 09/04/18 at 21:00; Stop 09/05/18 at 12:27; Status DC Aripiprazole (AbiLIFY) 5 mg QHS PO Last administered on 09/03/18at 21:37; Start 09/01/18 at 21:00; Stop 09/04/18 at 09:04; Status DC Bupropion HCl (Wellbutrin Xl) 150 mg DAILY PO Last administered on 09/05/18at 08:49; Start 09/04/18 at 09:00; Stop 09/05/18 at 12:27; Status DC Bupropion HCl (Wellbutrin Xl) 300 mg DAILY PO Last administered on 09/07/18 09:24; Start 09/06/18 at 09:00 Escitalopram Oxalate (Lexapro) 20 mg DAILY PO Last administered on 08/28/18at 13:23; Start 08/28/18 at 09:00; Stop 08/28/18 at 13:42; Status DC Escitalopram Oxalate (Lexapro) 30 mg DAILY PO Last administered on 09/07/18 09:24; Start 08/29/18 at 09:00 Fexofenadine HCl (Sho) 180 mg QAM PO Last administered on 09/07/18at 09:25; Start 09/06/18 at 09:00 Guaifenesin (Mucinex Tab Er) 600 mg BID PO Last administered on 09/07/18at 09:24; Start 08/28/18 at 09:00 Home Med (Med Rec Complete!) ASDIRECTED XX ; Start 08/27/18 at 23:00; Stop 08/27/18 at 23:00; Status DC Magnesium Hydroxide (Milk Of Magnesia) 30 ml DAILYPRN PRN PO CONSTIPATION; Start 08/27/18 at 23:00 Phenylephrine HCl (Neosynephrine 0.25% Nasal [place]) 2 spray Q4HP PRN NA NASAL CONGESTION; Start 09/04/18 at 16:45 Trazodone HCl (Desyrel) 50 mg QHSP PRN PO INSOMNIA Last administered on 09/06/18at 23:10; Start 08/27/18 at 23:00 Allergies Coded Allergies: No Known Allergies (Unverified , 08/27/18) ACOSTA WONG DO Sep 07, 2018 10:20
[2018-09-07 18:00] VITALS: BP 131/63
[2018-09-07] MEDS: ACETAMINOPHEN TAB 650MG DOSE (2X325MG) PO PRN (20:50)
[2018-09-07] MEDS: traZODone 50 MG TAB PO PRN (22:49)
[2018-09-08 06:41] VITALS: BP 117/66
[2018-09-08] MEDS: buPROPion **XL** TABLET 150MG (WELLBUTRIN XL) PO SCH (08:43)
[2018-09-08] MEDS: ESCITALOPRAM OXALATE 10 MG TAB (LEXAPRO) PO SCH (08:43)
[2018-09-08] MEDS: FEXOFENADINE 60 MG TAB PO SCH (08:43)
[2018-09-08] MEDS: guaiFENesin ER 600 MG TAB PO SCH ×2 (08:43→22:52)
[2018-09-08] MEDS: ACETAMINOPHEN TAB 650MG DOSE (2X325MG) PO PRN (15:08)
[2018-09-08] MEDS: IBUPROFEN 600 MG TAB PO SCH ×2 (17:52→23:00)
[2018-09-08 18:05] VITALS: BP 126/58
[2018-09-08] MEDS: traZODone 50 MG TAB PO PRN (22:52)
[2018-09-08] MEDS: MOM 30ML SUSPENSION UDC PO PRN (22:52)
[2018-09-09 06:00] VITALS: BP 94/53
[2018-09-09] MEDS: IBUPROFEN 600 MG TAB PO SCH ×4 (06:17→23:00)
[2018-09-09] MEDS: ESCITALOPRAM OXALATE 10 MG TAB (LEXAPRO) PO SCH (09:15)
[2018-09-09] MEDS: guaiFENesin ER 600 MG TAB PO SCH ×2 (09:15→21:24)
[2018-09-09] MEDS: buPROPion **XL** TABLET 150MG (WELLBUTRIN XL) PO SCH (09:15)
[2018-09-09] MEDS: FEXOFENADINE 60 MG TAB PO SCH (09:15)
[2018-09-09] MEDS: MOM 30ML SUSPENSION UDC PO PRN (11:57)
[2018-09-09] MEDS: DOCUSATE SODIUM 100 MG CAP PO SCH ×2 (13:52→21:24)
[2018-09-09] MEDS ORDERED: MAGNESIUM CITRATE 300 ML BTL PO ONE (14:00)
[2018-09-09 18:04] VITALS: BP 119/66
[2018-09-09] MEDS: traZODone 50 MG TAB PO PRN (21:24)
[2018-09-10] MEDS: IBUPROFEN 600 MG TAB PO SCH ×3 (05:31→17:36)
[2018-09-10 06:00] VITALS: BP 135/83
[2018-09-10] MEDS: FEXOFENADINE 60 MG TAB PO SCH (08:30)
[2018-09-10] MEDS: guaiFENesin ER 600 MG TAB PO SCH ×2 (08:30→21:13)
[2018-09-10] MEDS: ESCITALOPRAM OXALATE 10 MG TAB (LEXAPRO) PO SCH (08:30)
[2018-09-10] MEDS: buPROPion **XL** TABLET 150MG (WELLBUTRIN XL) PO SCH (08:30)
[2018-09-10] MEDS: DOCUSATE SODIUM 100 MG CAP PO SCH ×2 (08:30→21:13)
--- NOTE | 2018-09-10 12:17 | MHIPNPDOC ---
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 Interval History The patient is met with today. He reports that he is doing much better on the Wellbutrin 300 mg, reporting that he has increased concentration and focus and that he has felt much more engaged. Unable to complete psychometric testing due to high workload on the unit today due to sicknesses and on-call nature. Discussed with comp field case manager for unit that patient will need to review with [employer] [facility] after testing is complete. Patient has had no issues on the unit. Review Of Systems Reports improvement in his symptoms of concentration and focus deficits and some mild improvement in his anhedonia. Admits to some constipation from the Wellbutrin but no other side effects. Psychotherapy None on this visit. Vital Signs Reviewed. Mental Status Examination The patient has met with in the office. His hygiene is fair. He is dressed in street clothes. His affect is less dysthymic from previous with a improved range. Thought process linear. Admits to passive suicidal ideation at this time. Denies any homicidal ideation, auditory hallucinations or paranoid thought content. No psychomotor changes. Cognition grossly intact. Concentration and attention intact. Fund of knowledge adequate. Recent, remote and distant memory intact. Judgment and insight improving. Mood "better." Diagnoses 1. Major depressive disorder, severe without psychotic features, improving. 2. Body dysmorphic disorder, worsening. Assessment and Plan The patient is a 23-year-old man with a history of severe depression due to psychosocial stressors as well as complex internalization of body image standards, is currently worsening as medication regimen will likely need a medication change to address this. Continue Wellbutrin 300 mg of extended release daily, monitor constipation, decrease Lexapro to 25 mg daily as it has been unhelpful and has caused side effects of erectile dysfunction in the past, pending psychometric evaluation. The patient is converted to a voluntary 9.13 legal status. Disposition The patient will need further inpatient treatment to address his severe depression and suicidal thoughts. Time Spent 15 mins face to face Vital Signs Vital Signs Date Time Temp Pulse Resp B/P (MAP) Pulse Ox O2 Delivery O2 Flow Rate FiO2 09/10/18 06:00 98.1 75 18 135/83 (100) 09/08/18 08:53 Room Air 09/08/18 06:41 98 Current Medications Current Medications Acetaminophen (Tylenol Tab) 650 mg Q6HP PRN PO HEADACHE or DISCOMFORT Last administered on 09/08/18 15:08; Start 08/27/18 at 23:00 Al Hydrox/Mg Hydrox/Simethicone (Mylanta) 30 ml Q4HP PRN PO HEARTBURN/INDIGESTION; Start 08/27/18 at 23:00 Aripiprazole (AbiLIFY) 2 mg BID PO Last administered on 08/31/18at 20:46; Start 08/29/18 at 21:00; Stop 08/31/18 at 23:24; Status DC Aripiprazole (AbiLIFY) 2.5 mg QAM PO Last administered on 09/03/18 08:53; Start 09/01/18 at 09:00; Stop 09/03/18 at 18:22; Status DC Aripiprazole (AbiLIFY) 2.5 mg QHS PO Last administered on 09/04/18 22:35; Start 09/04/18 at 21:00; Stop 09/05/18 at 12:27; Status DC Aripiprazole (AbiLIFY) 5 mg QHS PO Last administered on 09/03/18 21:37; Start 09/01/18 at 21:00; Stop 09/04/18 at 09:04; Status DC Bupropion HCl (Wellbutrin Xl) 150 mg DAILY PO Last administered on 09/05/18 08:49; Start 09/04/18 at 09:00; Stop 09/05/18 at 12:27; Status DC Bupropion HCl (Wellbutrin Xl) 300 mg DAILY PO Last administered on 09/10/18 08:30; Start 09/06/18 at 09:00 Docusate Sodium (Colace) 100 mg BID PO Last administered on 09/10/18 08:30; Start 09/09/18 at 09:00 Escitalopram Oxalate (Lexapro) 20 mg DAILY PO Last administered on 08/28/18at 13:23; Start 08/28/18 at 09:00; Stop 08/28/18 at 13:42; Status DC Escitalopram Oxalate (Lexapro) 30 mg DAILY PO Last administered on 09/10/18 08:30; Start 08/29/18 at 09:00 Fexofenadine HCl (Sho) 180 mg QAM PO Last administered on 09/10/18 08:30; Start 09/06/18 at 09:00 Guaifenesin (Mucinex Tab Er) 600 mg BID PO Last administered on 09/10/18 08:30; Start 08/28/18 at 09:00 Home Med (Med Rec Complete!) ASDIRECTED XX ; Start 08/27/18 at 23:00; Stop 08/27/18 at 23:00; Status DC Ibuprofen (Advil) 600 mg Q6H PO Last administered on 09/10/18 05:31; Start 09/08/18 at 18:00 Magnesium Hydroxide (Milk Of Magnesia) 30 ml DAILYPRN PRN PO CONSTIPATION Last administered on 09/09/18 11:57; Start 08/27/18 at 23:00 Phenylephrine HCl (Neosynephrine 0.25% Nasal [place]) 2 spray Q4HP PRN NA NASAL CONGESTION; Start 09/04/18 at 16:45 Trazodone HCl (Desyrel) 50 mg QHSP PRN PO INSOMNIA Last administered on 21:24; Start 08/27/18 at 23:00 Allergies Coded Allergies: No Known Allergies (Unverified , 08/27/18) ACOSTA WONG DO Sep 10, 2018 12:17
[2018-09-10 18:00] VITALS: BP 130/77
[2018-09-11] MEDS: IBUPROFEN 600 MG TAB PO SCH ×4 (05:42→17:58)
[2018-09-11 06:33] VITALS: BP 108/56
[2018-09-11] MEDS: guaiFENesin ER 600 MG TAB PO SCH ×2 (08:28→20:42)
[2018-09-11] MEDS: DOCUSATE SODIUM 100 MG CAP PO SCH ×2 (08:29→20:42)
[2018-09-11] MEDS: buPROPion **XL** TABLET 150MG (WELLBUTRIN XL) PO SCH (08:29)
[2018-09-11] MEDS: FEXOFENADINE 60 MG TAB PO SCH (08:29)
[2018-09-11] MEDS: PILL CUTTER 1 EACH XX PRN (08:30)
[2018-09-11] MEDS ORDERED: ESCITALOPRAM OXALATE 10 MG TAB (LEXAPRO) PO SCH (09:00)
--- NOTE | 2018-09-11 10:14 | MHIPNPDOC ---
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 Interval History The patient's met with for psychometric testing and follow-up of his medications. He reports that he does have some improvement with the Wellbutrin, but notices he continues to have constipation. He describes that his overall mood can be good, but it can vary quite quickly, where it can become more irritable. His outpatient team is eager to get the results of the psychometric testing for further disposition. Review Of Systems Continues to emit to low mood. Loss of interest, but reports increased energy. Still endorses excessive worry. Psychotherapy None on this visit. Vital Signs Reviewed. Mental Status Examination The patient has met with in the office. His hygiene is fair. He is dressed in street clothes. His affect is less dysthymic from previous with a improved range. Thought process linear. Admits to passive suicidal ideation at this time. Denies any homicidal ideation, auditory hallucinations or paranoid thought content. No psychomotor changes. Cognition grossly intact. Concentration and attention intact. Fund of knowledge adequate. Recent, remote and distant memory intact. Judgment and insight improving. Mood "better." Diagnoses 1. Major depressive disorder, severe without psychotic features, improving. 2. Body dysmorphic disorder, worsening. Assessment and Plan The patient is a 23-year-old man with a history of severe depression due to psychosocial stressors as well as complex internalization of body image standards, is currently worsening as medication regimen will likely need a medication change to address this. Continue Wellbutrin 300 mg of extended release daily, monitor constipation, decrease Lexapro to 20 mg daily as it has been unhelpful and has caused side effects of erectile dysfunction in the past, pending psychometric evaluation. Magnesium citrate as patient has had positive experience with constipation using it in the past. Disposition The patient will need further inpatient treatment to address his severe depression and suicidal thoughts. Time Spent 15 minutes [id number]. Vital Signs Vital Signs Date Time Temp Pulse Resp B/P (MAP) Pulse Ox O2 Delivery O2 Flow Rate FiO2 09/11/18 06:33 98.5 77 12 108/56 (73) 09/08/18 08:53 Room Air 09/08/18 06:41 98 Current Medications Current Medications Acetaminophen (Tylenol Tab) 650 mg Q6HP PRN PO HEADACHE or DISCOMFORT Last administered on 09/08/18at 15:08; Start 08/27/18 at 23:00 Al Hydrox/Mg Hydrox/Simethicone (Mylanta) 30 ml Q4HP PRN PO HEARTBURN/INDIGESTION; Start 08/27/18 at 23:00 Aripiprazole (AbiLIFY) 2 mg BID PO Last administered on 08/31/18at 20:46; Start 08/29/18 at 21:00; Stop 08/31/18 at 23:24; Status DC Aripiprazole (AbiLIFY) 2.5 mg QAM PO Last administered on 09/03/18at 08:53; Start 09/01/18 at 09:00; Stop 09/03/18 at 18:22; Status DC Aripiprazole (AbiLIFY) 2.5 mg QHS PO Last administered on 09/04/18at 22:35; Start 09/04/18 at 21:00; Stop 09/05/18 at 12:27; Status DC Aripiprazole (AbiLIFY) 5 mg QHS PO Last administered on 09/03/18at 21:37; Start 09/01/18 at 21:00; Stop 09/04/18 at 09:04; Status DC Bupropion HCl (Wellbutrin Xl) 150 mg DAILY PO Last administered on 09/05/18at 08:49; Start 09/04/18 at 09:00; Stop 09/05/18 at 12:27; Status DC Bupropion HCl (Wellbutrin Xl) 300 mg DAILY PO Last administered on 09/11/18 08:29; Start 09/06/18 at 09:00 Docusate Sodium (Colace) 100 mg BID PO Last administered on 09/11/18 08:29; Start 09/09/18 at 09:00 Escitalopram Oxalate (Lexapro) 20 mg DAILY PO Last administered on 08/28/18at 13:23; Start 08/28/18 at 09:00; Stop 08/28/18 at 13:42; Status DC Escitalopram Oxalate (Lexapro) 25 mg DAILY PO Last administered on 09/11/18 08:29; Start 09/11/18 at 09:00 Escitalopram Oxalate (Lexapro) 30 mg DAILY PO Last administered on 09/10/18 08:30; Start 08/29/18 at 09:00; Stop 09/10/18 at 17:33; Status DC Fexofenadine HCl (Sho) 180 mg QAM PO Last administered on 09/11/18 08:29; Start 09/06/18 at 09:00 Guaifenesin (Mucinex Tab Er) 600 mg BID PO Last administered on 09/11/18 08:28; Start 08/28/18 at 09:00 Home Med (Med Rec Complete!) ASDIRECTED XX ; Start 08/27/18 at 23:00; Stop 08/27/18 at 23:00; Status DC Ibuprofen (Advil) 600 mg Q6H PO Last administered on 09/11/18 05:42; Start 09/08/18 at 18:00 Magnesium Hydroxide (Milk Of Magnesia) 30 ml DAILYPRN PRN PO CONSTIPATION Last administered on 09/09/18 11:57; Start 08/27/18 at 23:00 Phenylephrine HCl (Neosynephrine 0.25% Nasal [place]) 2 spray Q4HP PRN NA NASAL CONGESTION; Start 09/04/18 at 16:45 Trazodone HCl (Desyrel) 50 mg QHSP PRN PO INSOMNIA Last administered on 09/09/18 21:24; Start 08/27/18 at 23:00 Allergies Coded Allergies: No Known Allergies (Unverified , 08/27/18) ACOSTA WONG DO Sep 11, 2018 10:14
[2018-09-11] MEDS: MOM 30ML SUSPENSION UDC PO PRN (12:35)
[2018-09-11] MEDS ORDERED: MAGNESIUM OXIDE 400 MG TAB (MAG-OX) PO PRN (14:45)
[2018-09-11 18:00] VITALS: BP_SYST 127; BP_SYST 132; BP_DIAS 65; BP_DIAS 70
[2018-09-11] MEDS: traZODone 50 MG TAB PO PRN (20:43)
[2018-09-12] MEDS: IBUPROFEN 600 MG TAB PO SCH ×5 (06:00→23:06)
[2018-09-12 06:38] VITALS: BP 122/60
[2018-09-12] MEDS: FEXOFENADINE 60 MG TAB PO SCH (08:29)
[2018-09-12] MEDS: DOCUSATE SODIUM 100 MG CAP PO SCH ×2 (08:29→21:13)
[2018-09-12] MEDS: buPROPion **XL** TABLET 150MG (WELLBUTRIN XL) PO SCH (08:29)
[2018-09-12] MEDS: guaiFENesin ER 600 MG TAB PO SCH ×2 (08:29→21:14)
[2018-09-12] MEDS ORDERED: ESCITALOPRAM OXALATE 10 MG TAB (LEXAPRO) PO SCH (09:00)
--- NOTE | 2018-09-12 16:43 | MHCRPDOC ---
[facility] Consultation Consultation Psychometric Evaluation Ness Merchant Date of Service: 09/14/2018 Dates of Assessment September 05 and September 11 administration dates. Feedback given Monday, the 12 of September. Identifying Data and Reason for Referral Patient, a 23-year-old man with a history of a suicidal gesture, is referred for psychometric evaluation due to concerns that his symptoms could be beleaguered and as to whether long-term in-patient treatment would be helpful for the patient. Sources of Information Patient chart and DOD records. Background Information Patient, a 23-year-old man, grew up in [place] primarily to an intact family. He describes his early family life as sufficient without abuse, however it was generally invalidating. He did describe that he had significant difficulties feeling as though he was accomplished. He was able to attend school and graduate without much difficulty with no psychiatric concerns demonstrated at that time. He is currently to his second who he describes having a fairly tumultuous relationship with, that forms a lot of his stress. He had been prior with 2 children. He currently pays child support and they live in [place], which is a stressor for him as he is not able to see his 2 young children who are in their early toddler-dorantes. Patient currently lives with his with significant financial stress. 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 He describes that he generally focuses quite a bit on his work, however due to his financial problems he's additionally engaged in extra work that has caused him difficulties. Testing Behavior Patient engages readily with the testing. He takes his time and appears to be significantly invested in answering the questions. Standardized Instruments Personality Assessment Inventory and Structured Inventory of Malingered Symptoms. Results From Testing The testing results primarily from the Personality Assessment Inventory indicate a 2-type code of depression and borderline. These individuals generally develop fairly complex and chronic problems with identity and moodiness. Patient answered the questions valid with the malingering index being within the normal range and a normal range for defensiveness. He was likely very honest on this assessment. He was significantly elevated on depression in all 3 subcategories, indicating a likely diagnosis of major depression disorder parsed out from a diagnosis of adjustment disorder, which was on the differential. Patient score fairly high in his suicide risk, roughly in the 96 percentile with significant elevations on stress. Patient demonstrated a strong openness to evaluation and treatment, as demonstrated by a very low treatment resistance in the 2nd percentile. Combining these profiles together as well as sub-profiles of very low grandiosity but high egocentricity, indicate that Yousef likely views himself as a significant source of his problems with very low externalization. He generally has a pattern of relationships and habits that likely contribute to high levels of stress, that likely trigger major depressive episodes. He likely views relationships from a fairly unidirectional lens with difficulty in pursuing his abilities to attend to the emotional needs of his partner. Emotionally he likely has difficulty with alterity. Patient's Structured Inventory of Malingered Symptoms demonstrate a fairly low likelihood of malingering but high atypicality from his depression that likely feeds into his symptoms that he describes of moodiness and irritability as well as hypersomnia and a strong physiological response on his subsection of his JUDE. 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 He likely qualifies for the diagnosis of major depressive disorder, severe with atypical features, and borderline personality disorder. He likely would benefit from long-term treatment, of which is proposed 30 days as he will need to stabilize his depression. His suicidal potential is quite high and needs to be addressed with proper social and occupational interventions. He likely will have trouble managing his stress and people with the 2-code type that he comes from, and a low treatment response are fairly common in the clinical population but likely have issues with crises, and thus crisis and stress management will be ideal to help avert further admissions and to maximize the patient's health. Time Spent 1 hour of physician test administration time. 2 hours of professional service, interpretation, and feedback time, discussing with patient and commanders. Monday Vital Signs Vital Signs Date Time Temp Pulse Resp B/P (MAP) Pulse Ox O2 Delivery O2 Flow Rate FiO2 09/12/18 06:38 97.9 74 12 122/60 (80) 09/08/18 08:53 Room Air 09/08/18 06:41 98 Home Medications Current Medications Current Medications Acetaminophen (Tylenol Tab) 650 mg Q6HP PRN PO HEADACHE or DISCOMFORT Last administered on 09/08/18at 15:08; Start 08/27/18 at 23:00 Al Hydrox/Mg Hydrox/Simethicone (Mylanta) 30 ml Q4HP PRN PO HEARTBUR N/INDIGESTION; Start 08/27/18 at 23:00 Aripiprazole (AbiLIFY) 2 mg BID PO Last administered on 08/31/18at 20:46; Start 08/29/18 at 21:00; Stop 08/31/18 at 23:24; Status DC Aripiprazole (AbiLIFY) 2.5 mg QAM PO Last administered on 09/03/18at 08:53; Start 09/01/18 at 09:00; Stop 09/03/18 at 18:22; Status DC Aripiprazole (AbiLIFY) 2.5 mg QHS PO Last administered on 09/04/18at 22:35; S tart 09/04/18 at 21:00; Stop 09/05/18 at 12:27; Status DC Aripiprazole (AbiLIFY) 5 mg QHS PO Last administered on 09/03/18at 21:37; Start 09/01/18 at 21:00; Stop 09/04/18 at 09:04; Status DC Bupropion HCl (Wellbutrin Xl) 150 mg DAILY PO Last administered on 09/05/18at 08:49; Start 09/04/18 at 09:00; Stop 09/05/18 at 12:27; Status DC Bupropion HCl (Wellbutrin Xl) 300 mg DAILY PO Last administered on 09/12/18 08:29; Start 09/06/18 at 09:00 Docusate Sodium (Colace) 100 mg BID PO Last administered on 09/12/18 08:29; Start 09/09/18 at 09:00 Escitalopram Oxalate (Lexapro) 20 mg DAILY PO Last administered on 08/28/18at 13:23; Start 08/28/18 at 09:00; Stop 08/28/18 at 13:42; Status DC Escitalopram Oxalate (Lexapro) 20 mg DAILY PO Last administered on 09/12/18 08:30; Start 09/12/18 at 09:00 Escitalopram Oxalate (Lexapro) 25 mg DAILY PO Last administered on 09/11/18at 08:29; Start 09/11/18 at 09:00; Stop 09/11/18 at 14:44; Status DC Escitalopram Oxalate (Lexapro) 30 mg DAILY PO Last administered on 09/10/18 08:30; Start 08/29/18 at 09:00; Stop 09/10/18 at 17:33; Status DC Fexofenadine HCl (Sho) 180 mg QAM PO Last administered on 09/12/18at 08:29; Start 09/06/18 at 09:00 Guaifenesin (Mucinex Tab Er) 600 mg BID PO Last administered on 09/12/18 08:29; Start 08/28/18 at 09:00 Home Med (Med Rec Complete!) ASDIRECTED XX ; Start 08/27/18 at 23:00; Stop 08/27/18 at 23:00; Status DC Ibuprofen (Advil) 600 mg Q6H PO Last administered on 09/11/18at 17:58; Start 09/08/18 at 18:00 Magnesium Hydroxide (Milk Of Magnesia) 30 ml DAILYPRN PRN PO CONSTIPATION Last administered on 09/11/18at 12:35; Start 08/27/18 at 23:00 Magnesium Oxide (Mag-Ox) 400 mg DAILY PRN PO constipation; Start 09/11/18 at 14:45 Phenylephrine HCl (Neosynephrine 0.25% Nasal [place]) 2 spray Q4HP PRN NA NASAL CONGESTION; Start 09/04/18 at 16:45 Trazodone HCl (Desyrel) 50 mg QHSP PRN PO INSOMNIA Last administered on 09/11/18at 20:43; Start 08/27/18 at 23:00 Scheduled Escitalopram Oxalate (Lexapro) 20 Mg Tablet, 20 MG PO DAILY, (Reported) Guaifenesin/Dextromethorphan (Mucinex Dm ER 600-30 mg Tablet) 1 Each Tab.er.12h, 2 TAB PO BID, (Reported) Loratadine (Claritin) 10 Mg Tablet, 10 MG PO DAILY, (Reported) Scheduled PRN Albuterol Sulfate (Ventolin Hfa) 18 Gm Hfa.aer.ad, 2 PUFF INH QID PRN for SHORTNESS OF BREATH, (Reported) Fluticasone Propionate (Flonase Allergy Relief) 9.9 Ml [place].susp, 1 SPRAY NA BID PRN for NASAL CONGESTION, (Reported) Allergies Coded Allergies: No Known Allergies (Unverified , 08/27/18) ACOSTA WONG DO Sep 12, 2018 16:43
--- NOTE | 2018-09-12 16:43 | MHIPNPDOC ---
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 Interval History Patient met with today, reports benefit from Wellbutrin but wares off mcc through the day, admits to still having constipation, mag cit helped alot. When out today for application for financial assistance Review Of Systems Continues to emit to low mood. Loss of interest, but reports increased energy. Still endorses excessive worry. Psychotherapy None on this visit. Vital Signs Reviewed. Mental Status Examination The patient has met with in the office. His hygiene is fair. He is dressed in street clothes. His affect is less dysthymic from previous with a improved range. Thought process linear. Admits to passive suicidal ideation at this time. Denies any homicidal ideation, auditory hallucinations or paranoid thought content. No psychomotor changes. Cognition grossly intact. Concentration and attention intact. Fund of knowledge adequate. Recent, remote and distant memory intact. Judgment and insight improving. Mood "better." Diagnoses 1. Major depressive disorder, severe without psychotic features, improving. 2. BPD Assessment and Plan The patient is a 23-year-old man with a history of severe depression due to psychosocial stressors as well as complex internalization of body image standards, is currently worsening as medication regimen will likely need a medication change to address this. Split wellbutrin 150mg XL BID, start rozerm for sleep, psychometric testing done, prelim evidence is MDD with atypical features with BPD. Magnesium citrate as patient has had positive experience with constipation using it in the past. Disposition The patient will need further inpatient treatment to address his severe depression and suicidal thoughts. Time Spent 15 minutes [id number]. Vital Signs Vital Signs Date Time Temp Pulse Resp B/P (MAP) Pulse Ox O2 Delivery O2 Flow Rate FiO2 09/12/18 06:38 97.9 74 12 122/60 (80) 09/08/18 08:53 Room Air 09/08/18 06:41 98 Current Medications Current Medications Acetaminophen (Tylenol Tab) 650 mg Q6HP PRN PO HEADACHE or DISCOMFORT Last administered on 7/6/19at 15:08; Start 08/27/18 at 23:00 Al Hydrox/Mg Hydrox/Simethicone (Mylanta) 30 ml Q4HP PRN PO HEARTBURN/INDIGESTION; Start 08/27/18 at 23:00 Aripiprazole (AbiLIFY) 2 mg BID PO Last administered on 08/31/18 20:46; Start 08/29/18 at 21:00; Stop 08/31/18 at 23:24; Status DC Aripiprazole (AbiLIFY) 2.5 mg QAM PO Last administered on 09/03/18 08:53; Start 09/01/18 at 09:00; Stop 09/03/18 at 18:22; Status DC Aripiprazole (AbiLIFY) 2.5 mg QHS PO Last administered on 09/04/18 22:35; Start 09/04/18 at 21:00; Stop 09/05/18 at 12:27; Status DC Aripiprazole (AbiLIFY) 5 mg QHS PO Last administered on 09/03/18 21:37; Start 09/01/18 at 21:00; Stop 09/04/18 at 09:04; Status DC Bupropion HCl (Wellbutrin Xl) 150 mg DAILY PO Last administered on 09/05/18 08:49; Start 09/04/18 at 09:00; Stop 09/05/18 at 12:27; Status DC Bupropion HCl (Wellbutrin Xl) 300 mg DAILY PO Last administered on 09/12/18 08:29; Start 09/06/18 at 09:00 Docusate Sodium (Colace) 100 mg BID PO Last administered on 09/12/18 08:29; Start 09/09/18 at 09:00 Escitalopram Oxalate (Lexapro) 20 mg DAILY PO Last administered on 08/28/18 13:23; Start 08/28/18 at 09:00; Stop 08/28/18 at 13:42; Status DC Escitalopram Oxalate (Lexapro) 20 mg DAILY PO Last administered on 09/12/18 08:30; Start 09/12/18 at 09:00 Escitalopram Oxalate (Lexapro) 25 mg DAILY PO Last administered on 09/11/18 08:29; Start 09/11/18 at 09:00; Stop 09/11/18 at 14:44; Status DC Escitalopram Oxalate (Lexapro) 30 mg DAILY PO Last administered on 09/10/18 08:30; Start 08/29/18 at 09:00; Stop 09/10/18 at 17:33; Status DC Fexofenadine HCl (Sho) 180 mg QAM PO Last administered on 09/12/18 08:29; Start 09/06/18 at 09:00 Guaifenesin (Mucinex Tab Er) 600 mg BID PO Last administered on 09/12/18 08:29; Start 08/28/18 at 09:00 Home Med (Med Rec Complete!) ASDIRECTED XX ; Start 08/27/18 at 23:00; Stop 08/27/18 at 23:00; Status DC Ibuprofen (Advil) 600 mg Q6H PO Last administered on 09/11/18at 17:58; Start 09/08/18 at 18:00 Magnesium Hydroxide (Milk Of Magnesia) 30 ml DAILYPRN PRN PO CONSTIPATION Last administered on 09/11/18at 12:35; Start 08/27/18 at 23:00 Magnesium Oxide (Mag-Ox) 400 mg DAILY PRN PO constipation; Start 09/11/18 at 14:45 Phenylephrine HCl (Neosynephrine 0.25% Nasal [place]) 2 spray Q4HP PRN NA NASAL CONGESTION; Start 09/04/18 at 16:45 Trazodone HCl (Desyrel) 50 mg QHSP PRN PO INSOMNIA Last administered on 09/11/18at 20:43; Start 08/27/18 at 23:00 Allergies Coded Allergies: No Known Allergies (Unverified , 08/27/18) ACOSTA WONG DO Sep 12, 2018 16:43
[2018-09-12] MEDS ORDERED: MAGNESIUM CITRATE 300 ML BTL PO PRN (17:15)
[2018-09-12 18:00] VITALS: BP 128/73
[2018-09-12] MEDS: RAMELTEON 8 MG TAB (ROZEREM) PO SCH (21:13)
[2018-09-13] MEDS: IBUPROFEN 600 MG TAB PO SCH ×4 (05:37→20:00)
[2018-09-13 06:44] VITALS: BP 120/58
[2018-09-13] MEDS: FEXOFENADINE 60 MG TAB PO SCH (09:12)
[2018-09-13] MEDS: ESCITALOPRAM OXALATE 5MG TABLET (LEXAPRO) PO SCH (09:12)
[2018-09-13] MEDS: buPROPion **XL** TABLET 150MG (WELLBUTRIN XL) PO SCH ×2 (09:13→19:51)
[2018-09-13] MEDS: DOCUSATE SODIUM 100 MG CAP PO SCH ×2 (09:13→19:52)
[2018-09-13] MEDS: guaiFENesin ER 600 MG TAB PO SCH ×2 (09:13→19:51)
[2018-09-13 18:00] VITALS: BP 131/65
[2018-09-13] MEDS: RAMELTEON 8 MG TAB (ROZEREM) PO SCH (19:52)
[2018-09-14] MEDS: IBUPROFEN 600 MG TAB PO SCH ×3 (05:13→18:00)
[2018-09-14 06:52] VITALS: BP 117/61
[2018-09-14] MEDS: FEXOFENADINE 60 MG TAB PO SCH (08:25)
[2018-09-14] MEDS: guaiFENesin ER 600 MG TAB PO SCH ×2 (08:25→20:06)
[2018-09-14] MEDS: buPROPion **XL** TABLET 150MG (WELLBUTRIN XL) PO SCH ×2 (08:25→20:05)
[2018-09-14] MEDS: ESCITALOPRAM OXALATE 5MG TABLET (LEXAPRO) PO SCH (08:26)
[2018-09-14] MEDS: DOCUSATE SODIUM 100 MG CAP PO SCH ×2 (08:26→20:05)
--- NOTE | 2018-09-14 11:39 | MHIPNPDOC ---
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 Interval History The patient's seen today. He had had a fairly long MARIELY meeting with this provider and his development planner in which the situation and psychometry were discussed at length. The patient when met separately for medication management reported that the Wellbutrin was fairly helpful, although the Rozerem at 8 mg is highly sedating, although very helpful for a good night sleep. He reports feeling some sedation during the day. He states that his constipation is improving well with the magnesium citrate. Review Of Systems Reports improved energy and less fatigue. Denies any other side effects from medications at this time. Psychotherapy None on this visit. Vital Signs Reviewed. Mental Status Examination General: Fair hygiene Speech: Spontaneous and fluid Thought processes: Linear and logical MSK: Smooth and coordinated gait, no signs of tremors or involuntary orofacial movements Thought content: Future orientated Abstract reasoning, and computation: Intact Description of associations: Intact Description of abnormal or psychotic thoughts: Denies any suicidal ideation at this time. No homicidal ideation. Does not appear to be responding to internal stimuli Judgment: Improving Insight: Improving Orientation: Alert and orientated 3 Cognition: Grossly normal Recent and remote memory: Intact Attention span and concentration: Intact Fund of knowledge: Adequate Mood: "okay" Affect: Dysthymic with a constricted range Diagnoses MDD, severe with atypical features: Improving. Borderline personality disorder: Improving. Assessment and Plan The patient, a 23-year-old man, is met with today with his MARIELY He has been appr nathan for long-term inpatient for 30 days and thus will be triaged there on Monday next week. The patient has been making some mild improvements, but will need further intensive treatment in order to guarantee his safety due to his high risk as identified by the psychometry. Continue Wellbutrin 150 mg extended release BID. Discontinue Rozerem 8 mg and start 4 mg of Rozerem. Lower Lexapro to 10 mg daily. Continue magnesium citrate PRN for constipation. Disposition The patient will need further inpatient admission in order to effectively plan for a safe transition to long-term care. His mood has been improving mildly, however, a multitude of risk factors and frequently varying moods make it difficult to ensure long-term safety. Time Spent 30 mins Vital Signs Vital Signs Date Time Temp Pulse Resp B/P (MAP) Pulse Ox O2 Delivery O2 Flow Rate FiO2 09/14/18 06:52 98.0 62 14 117/61 (79) 09/08/18 08:53 Room Air 09/08/18 06:41 98 Current Medications Current Medications Acetaminophen (Tylenol Tab) 650 mg Q6HP PRN PO HEADACHE or DISCOMFORT Last administered on 09/08/18 15:08; Start 08/27/18 at 23:00 Al Hydrox/Mg Hydrox/Simethicone (Mylanta) 30 ml Q4HP PRN PO HEARTBURN/INDIGESTION; Start 08/27/18 at 23:00 Aripiprazole (AbiLIFY) 2 mg BID PO Last administered on 08/31/18at 20:46; Start 08/29/18 at 21:00; Stop 08/31/18 at 23:24; Status DC Aripiprazole (AbiLIFY) 2.5 mg QAM PO Last administered on 09/03/18 08:53; Start 09/01/18 at 09:00; Stop 09/03/18 at 18:22; Status DC Aripiprazole (AbiLIFY) 2.5 mg QHS PO Last administered on 09/04/18at 22:35; Start 09/04/18 at 21:00; Stop 09/05/18 at 12:27; Status DC Aripiprazole (AbiLIFY) 5 mg QHS PO Last administered on 09/03/18at 21:37; Start 09/01/18 at 21:00; Stop 09/04/18 at 09:04; Status DC Bupropion HCl (Wellbutrin Xl) 150 mg BID PO Last administered on 09/14/18 08:25; Start 09/13/18 at 09:00 Bupropion HCl (Wellbutrin Xl) 150 mg DAILY PO Last administered on 09/05/18 08:49; Start 09/04/18 at 09:00; Stop 09/05/18 at 12:27; Status DC Bupropion HCl (Wellbutrin Xl) 300 mg DAILY PO Last administered on 09/12/18 08:29; Start 09/06/18 at 09:00; Stop 09/12/18 at 17:13; Status DC Docusate Sodium (Colace) 100 mg BID PO Last administered on 09/14/18 08:26; Start 09/09/18 at 09:00 Escitalopram Oxalate (Lexapro) 15 mg DAILY PO Last administered on 09/14/18 08:26; Start 09/13/18 at 09:00 Escitalopram Oxalate (Lexapro) 20 mg DAILY PO Last administered on 08/28/18 13:23; Start 08/28/18 at 09:00; Stop 08/28/18 at 13:42; Status DC Escitalopram Oxalate (Lexapro) 20 mg DAILY PO Last administered on 09/12/18 08:30; Start 09/12/18 at 09:00; Stop 09/12/18 at 17:14; Status DC Escitalopram Oxalate (Lexapro) 25 mg DAILY PO Last administered on 09/11/18at 08:29; Start 09/11/18 at 09:00; Stop 09/11/18 at 14:44; Status DC Escitalopram Oxalate (Lexapro) 30 mg DAILY PO Last administered on 09/10/18 08:30; Start 08/29/18 at 09:00; Stop 09/10/18 at 17:33; Status DC Fexofenadine HCl (Sho) 180 mg QAM PO Last administered on 09/14/18at 08:25; Start 09/06/18 at 09:00 Guaifenesin (Mucinex Tab Er) 600 mg BID PO Last administered on 09/14/18 08:25; Start 08/28/18 at 09:00 Home Med (Med Rec Complete!) ASDIRECTED XX ; Start 08/27/18 at 23:00; Stop 08/27/18 at 23:00; Status DC Ibuprofen (Advil) 600 mg Q6H PO Last administered on 09/13/18at 17:21; Start 09/08/18 at 18:00 Magnesium Hydroxide (Milk Of Magnesia) 30 ml DAILYPRN PRN PO CONSTIPATION Last administered on 09/11/18at 12:35; Start 08/27/18 at 23:00 Magnesium Citrate (Citrate Of Magnesia) 150 ml DAILYPRN PRN PO constipation Last administered on 09/13/18at 09:11; Start 09/12/18 at 17:15 Magnesium Oxide (Mag-Ox) 400 mg DAILY PRN PO constipation Last administered on 09/12/18at 17:33; Start 09/11/18 at 14:45 Phenylephrine HCl (Neosynephrine 0.25% Nasal [place]) 2 spray Q4HP PRN NA NASAL CONGESTION; Start 09/04/18 at 16:45 Ramelteon (Rozerem) 8 mg QHS PO Last administered on 09/13/18at 19:52; Start 09/12/18 at 21:00 Trazodone HCl (Desyrel) 50 mg QHSP PRN PO INSOMNIA Last administered on 09/11/18at 20:43; Start 08/27/18 at 23:00; Stop 09/12/18 at 17:19; Status DC Allergies Coded Allergies: No Known Allergies (Unverified , 08/27/18) ACOSTA WONG DO Sep 14, 2018 11:39
[2018-09-14 18:04] VITALS: BP 130/65
[2018-09-14] MEDS: RAMELTEON 8 MG TAB (ROZEREM) PO SCH (20:06)
[2018-09-15] MEDS: IBUPROFEN 600 MG TAB PO SCH ×4 (06:00→17:46)
[2018-09-15 06:39] VITALS: BP 105/62
[2018-09-15] MEDS: FEXOFENADINE 60 MG TAB PO SCH (08:12)
[2018-09-15] MEDS: buPROPion **XL** TABLET 150MG (WELLBUTRIN XL) PO SCH ×2 (08:12→20:11)
[2018-09-15] MEDS: DOCUSATE SODIUM 100 MG CAP PO SCH ×2 (08:12→20:11)
[2018-09-15] MEDS: ESCITALOPRAM OXALATE 10 MG TAB (LEXAPRO) PO SCH (08:12)
[2018-09-15] MEDS: guaiFENesin ER 600 MG TAB PO SCH ×2 (08:12→20:11)
[2018-09-15 18:00] VITALS: BP 131/71
[2018-09-15] MEDS: RAMELTEON 8 MG TAB (ROZEREM) PO SCH (20:11)
[2018-09-16] MEDS: IBUPROFEN 600 MG TAB PO SCH ×4 (05:31→17:15)
[2018-09-16 06:47] VITALS: BP 123/58
[2018-09-16] MEDS: guaiFENesin ER 600 MG TAB PO SCH ×2 (08:36→20:24)
[2018-09-16] MEDS: FEXOFENADINE 60 MG TAB PO SCH (08:36)
[2018-09-16] MEDS: DOCUSATE SODIUM 100 MG CAP PO SCH ×2 (08:36→20:24)
[2018-09-16] MEDS: ESCITALOPRAM OXALATE 10 MG TAB (LEXAPRO) PO SCH (08:36)
[2018-09-16] MEDS: buPROPion **XL** TABLET 150MG (WELLBUTRIN XL) PO SCH ×2 (08:36→20:24)
[2018-09-16 18:00] VITALS: BP 129/58
[2018-09-16] MEDS: RAMELTEON 8 MG TAB (ROZEREM) PO SCH (20:24)
[2018-09-16] MEDS: PILL CUTTER 1 EACH XX PRN (20:24)
[2018-09-17] MEDS: IBUPROFEN 600 MG TAB PO SCH ×4 (05:54→17:24)
[2018-09-17 06:44] VITALS: BP 118/63
[2018-09-17] MEDS: guaiFENesin ER 600 MG TAB PO SCH ×2 (08:18→20:51)
[2018-09-17] MEDS: ESCITALOPRAM OXALATE 10 MG TAB (LEXAPRO) PO SCH (08:18)
[2018-09-17] MEDS: DOCUSATE SODIUM 100 MG CAP PO SCH ×2 (08:18→20:51)
[2018-09-17] MEDS: buPROPion **XL** TABLET 150MG (WELLBUTRIN XL) PO SCH (08:18)
[2018-09-17] MEDS: FEXOFENADINE 60 MG TAB PO SCH (08:19)
--- NOTE | 2018-09-17 15:35 | MHIPNPDOC ---
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 Interval History The patient was met with briefly today. He describes that the pass was a good experience where he was applying for financial assistance. He describes that his depression has made some slow progress on the Wellbutrin 300 mg daily. He describes that his sleeping has improved as he noticed that the split dose was causing him some uncomfortable insomnia. He is pending long-term treatment at this time. Review Of Systems Doesn't endorse any side effects other than insomnia from the Wellbutrin. Describes mood improved with less fatigue, notices less variation towards the end of the day on the 300 mg that he had noticed prior to the trial of a split dose. Psychotherapy None on this visit. Vital Signs Reviewed. Mental Status Examination General: Fair hygiene Speech: Spontaneous and fluid Thought processes: Linear and logical MSK: Smooth and coordinated gait, no signs of tremors or involuntary orofacial movements Thought content: Future orientated Abstract reasoning, and computation: Intact Description of associations: Intact Description of abnormal or psychotic thoughts: Denies any suicidal ideation at this time. No homicidal ideation. Does not appear to be responding to internal stimuli Judgment: Improving Insight: Improving Orientation: Alert and orientated 3 Cognition: Grossly normal Recent and remote memory: Intact Attention span and concentration: Intact Fund of knowledge: Adequate Mood: "okay" Affect: Dysthymic with a constricted range Diagnoses MDD, severe with atypical features: Improving. Borderline personality disorder: Improving. 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 He has been approved for long-term inpatient for 30 days and thus will be triaged there on Monday next week. The patient has been making some mild improvements, but will need further intensive treatment in order to guarantee his safety due to his high risk as identified by the psychometry. Continue Wellbutrin 300 mg daily, continue Rozerem 4 mg at night, continue Lexapro 10 mg daily as well as PRN magnesium citrate for constipation. Disposition The patient will need further inpatient admission in order to effectively plan for a safe transition to long-term care. His mood has been improving mildly, however, a multitude of risk factors and frequently varying moods make it difficult to ensure long-term safety. Time Spent 10 minutes [id number]. Monday Vital Signs Vital Signs Date Time Temp Pulse Resp B/P (MAP) Pulse Ox O2 Delivery O2 Flow Rate FiO2 09/17/18 06:44 97.9 68 12 118/63 (81) Current Medications Current Medications Acetaminophen (Tylenol Tab) 650 mg Q6HP PRN PO HEADACHE or DISCOMFORT Last administered on 09/08/18 15:08; Start 08/27/18 at 23:00 Al Hydrox/Mg Hydrox/Simethicone (Mylanta) 30 ml Q4HP PRN PO HEARTBURN/INDIGESTION; Start 08/27/18 at 23:00 Aripiprazole (AbiLIFY) 2 mg BID PO Last administered on 08/31/18at 20:46; Start 08/29/18 at 21:00; Stop 08/31/18 at 23:24; Status DC Aripiprazole (AbiLIFY) 2.5 mg QAM PO Last administered on 09/03/18at 08:53; Start 09/01/18 at 09:00; Stop 09/03/18 at 18:22; Status DC Aripiprazole (AbiLIFY) 2.5 mg QHS PO Last administered on 09/04/18 22:35; Start 09/04/18 at 21:00; Stop 09/05/18 at 12:27; Status DC Aripiprazole (AbiLIFY) 5 mg QHS PO Last administered on 09/03/18 21:37; Start 09/01/18 at 21:00; Stop 09/04/18 at 09:04; Status DC Bupropion HCl (Wellbutrin Xl) 150 mg BID PO Last administered on 09/16/18at 20:24; Start 09/13/18 at 09:00; Stop 09/16/18 at 22:00; Status DC Bupropion HCl (Wellbutrin Xl) 150 mg DAILY PO Last administered on 09/05/18at 08:49; Start 09/04/18 at 09:00; Stop 09/05/18 at 12:27; Status DC Bupropion HCl (Wellbutrin Xl) 300 mg DAILY PO Last administered on 09/17/18 08:18; Start 09/17/18 at 09:00 Bupropion HCl (Wellbutrin Xl) 300 mg DAILY PO Last administered on 09/12/18 08:29; Start 09/06/18 at 09:00; Stop 09/12/18 at 17:13; Status DC Docusate Sodium (Colace) 100 mg BID PO Last administered on 09/17/18 08:18; Start 09/09/18 at 09:00 Escitalopram Oxalate (Lexapro) 10 mg DAILY PO Last administered on 09/17/18 08:18; Start 09/15/18 at 09:00 Escitalopram Oxalate (Lexapro) 15 mg DAILY PO Last administered on 09/14/18at 08:26; Start 09/13/18 at 09:00; Stop 09/14/18 at 18:42; Status DC Escitalopram Oxalate (Lexapro) 20 mg DAILY PO Last administered on 08/28/18at 13:23; Start 08/28/18 at 09:00; Stop 08/28/18 at 13:42; Status DC Escitalopram Oxalate (Lexapro) 20 mg DAILY PO Last administered on 09/12/18 08:30; Start 09/12/18 at 09:00; Stop 09/12/18 at 17:14; Status DC Escitalopram Oxalate (Lexapro) 25 mg DAILY PO Last administered on 09/11/18 08:29; Start 09/11/18 at 09:00; Stop 09/11/18 at 14:44; Status DC Escitalopram Oxalate (Lexapro) 30 mg DAILY PO Last administered on 09/10/18 08:30; Start 08/29/18 at 09:00; Stop 09/10/18 at 17:33; Status DC Fexofenadine HCl (Sho) 180 mg QAM PO Last administered on 09/17/18 08:19; Start 09/06/18 at 09:00 Guaifenesin (Mucinex Tab Er) 600 mg BID PO Last administered on 09/17/18 08:18; Start 08/28/18 at 09:00 Home Med (Med Rec Complete!) ASDIRECTED XX ; Start 08/27/18 at 23:00; Stop 08/27/18 at 23:00; Status DC Ibuprofen (Advil) 600 mg Q6H PO Last administered on 09/15/18at 11:54; Start 09/08/18 at 18:00 Magnesium Hydroxide (Milk Of Magnesia) 30 ml DAILYPRN PRN PO CONSTIPATION Last administered on 09/11/18 12:35; Start 08/27/18 at 23:00 Magnesium Citrate (Citrate Of Magnesia) 150 ml DAILYPRN PRN PO constipation Last administered on 09/13/18 09:11; Start 09/12/18 at 17:15 Magnesium Oxide (Mag-Ox) 400 mg DAILY PRN PO constipation Last administered on 09/12/18at 17:33; Start 09/11/18 at 14:45 Phenylephrine HCl (Neosynephrine 0.25% Nasal [place]) 2 spray Q4HP PRN NA NASAL CONGESTION; Start 09/04/18 at 16:45 Ramelteon (Rozerem) 4 mg QHS PO Last administered on 09/16/18at 20:24; Start 09/14/18 at 21:00 Ramelteon (Rozerem) 8 mg QHS PO Last administered on 09/13/18 19:52; Start 09/12/18 at 21:00; Stop 09/14/18 at 18:53; Status DC Trazodone HCl (Desyrel) 50 mg QHSP PRN PO INSOMNIA Last administered on 09/11/18 20:43; Start 08/27/18 at 23:00; Stop 09/12/18 at 17:19; Status DC Allergies Coded Allergies: No Known Allergies (Unverified , 08/27/18) ACOSTA WONG DO Sep 17, 2018 15:35
[2018-09-17 18:10] VITALS: BP 140/86
[2018-09-17] MEDS: PILL CUTTER 1 EACH XX PRN (20:51)
[2018-09-17] MEDS: RAMELTEON 8 MG TAB (ROZEREM) PO SCH (20:51)
[2018-09-18] MEDS: IBUPROFEN 600 MG TAB PO SCH ×4 (06:00→17:50)
[2018-09-18 06:43] VITALS: BP 102/56
[2018-09-18] MEDS: guaiFENesin ER 600 MG TAB PO SCH ×2 (08:41→20:45)
[2018-09-18] MEDS: ESCITALOPRAM OXALATE 10 MG TAB (LEXAPRO) PO SCH (08:41)
[2018-09-18] MEDS: buPROPion **XL** TABLET 150MG (WELLBUTRIN XL) PO SCH (08:41)
[2018-09-18] MEDS: DOCUSATE SODIUM 100 MG CAP PO SCH ×2 (08:41→20:45)
[2018-09-18] MEDS: FEXOFENADINE 60 MG TAB PO SCH (08:42)
--- NOTE | 2018-09-18 11:24 | MHIPNPDOC ---
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 Interval History The patient is met with today where he describes having a fairly good experience on his pass to further apply for financial assistance. He describes that the Wellbutrin is helpful for his mood and that he had accidentally got a full tablet of Rozerem last night that he felt was fairly helpful for his sleep and he requested to have it increased. The patient reports that he has been able to feel hopeful about long-term treatment and had questions about the process. Staff have noticed him attending groups and being somewhat social on the unit. No behavioral problems overnight. Review Of Systems Denies any side effects from his medications at this time. No GI upset, headaches. Reports improve in constipation with magnesium citrate. Psychotherapy None on this visit. Vital Signs Reviewed. Mental Status Examination General: Fair hygiene Speech: Spontaneous and fluid Thought processes: Linear and logical MSK: Smooth and coordinated gait, no signs of tremors or involuntary orofacial movements Thought content: Future orientated Abstract reasoning, and computation: Intact Description of associations: Intact Description of abnormal or psychotic thoughts: Admits to improving suicidal ideation that varies. No homicidal ideation. Does not appear to be responding to internal stimuli Judgment: Improving Insight: Improving Orientation: Alert and orientated 3 Cognition: Grossly normal Recent and remote memory: Intact Attention span and concentration: Intact Fund of knowledge: Adequate Mood: "okay" Affect: Dysthymic with a constricted range Diagnoses MDD, severe with atypical features: Improving. Borderline personality disorder: Improving. 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 He has been approved for long-term inpatient for 30 days and thus will be triaged there on Monday next week. The patient has been making some mild improvements, but will need further intensive treatment in order to guarantee his safety due to his high risk as identified by the psychometry. Increase Wellbutrin to 450 mg daily, increase Rozerem to 8 mg at night, and decrease Lexapro to 5 mg daily. Continue PRN magnesium citrate for constipation. Disposition The patient will need further inpatient admission in order to effectively plan for a safe transition to long-term care. His mood has been improving mildly, however, a multitude of risk factors and frequently varying moods make it difficult to ensure long-term safety. Time Spent 20 minutes [id number]. Monday Vital Signs Vital Signs Date Time Temp Pulse Resp B/P (MAP) Pulse Ox O2 Delivery O2 Flow Rate FiO2 09/18/18 08:32 Room Air 09/18/18 06:43 97.2 77 16 102/56 (71) Current Medications Current Medications Acetaminophen (Tylenol Tab) 650 mg Q6HP PRN PO HEADACHE or DISCOMFORT Last administered on 09/08/18at 15:08; Start 08/27/18 at 23:00 Al Hydrox/Mg Hydrox/Simethicone (Mylanta) 30 ml Q4HP PRN PO HEARTBURN/INDIGESTION; Start 08/27/18 at 23:00 Aripiprazole (AbiLIFY) 2 mg BID PO Last administered on 08/31/18at 20:46; Start 08/29/18 at 21:00; Stop 08/31/18 at 23:24; Status DC Aripiprazole (AbiLIFY) 2.5 mg QAM PO Last administered on 09/03/18at 08:53; Start 09/01/18 at 09:00; Stop 09/03/18 at 18:22; Status DC Aripiprazole (AbiLIFY) 2.5 mg QHS PO Last administered on 09/04/18at 22:35; Start 09/04/18 at 21:00; Stop 09/05/18 at 12:27; Status DC Aripiprazole (AbiLIFY) 5 mg QHS PO Last administered on 09/03/18at 21:37; Start 09/01/18 at 21:00; Stop 09/04/18 at 09:04; Status DC Bupropion HCl (Wellbutrin Xl) 150 mg BID PO Last administered on 09/16/18at 20:24; Start 09/13/18 at 09:00; Stop 09/16/18 at 22:00; Status DC Bupropion HCl (Wellbutrin Xl) 150 mg DAILY PO Last administered on 09/05/18 08:49; Start 09/04/18 at 09:00; Stop 09/05/18 at 12:27; Status DC Bupropion HCl (Wellbutrin Xl) 300 mg DAILY PO Last administered on 09/18/18 08:41; Start 09/17/18 at 09:00 Bupropion HCl (Wellbutrin Xl) 300 mg DAILY PO Last administered on 09/12/18 08:29; Start 09/06/18 at 09:00; Stop 09/12/18 at 17:13; Status DC Docusate Sodium (Colace) 100 mg BID PO Last administered on 09/18/18 08:41; Start 09/09/18 at 09:00 Escitalopram Oxalate (Lexapro) 10 mg DAILY PO Last administered on 09/18/18 08:41; Start 09/15/18 at 09:00 Escitalopram Oxalate (Lexapro) 15 mg DAILY PO Last administered on 09/14/18 08:26; Start 09/13/18 at 09:00; Stop 09/14/18 at 18:42; Status DC Escitalopram Oxalate (Lexapro) 20 mg DAILY PO Last administered on 08/28/18at 13:23; Start 08/28/18 at 09:00; Stop 08/28/18 at 13:42; Status DC Escitalopram Oxalate (Lexapro) 20 mg DAILY PO Last administered on 09/12/18 08:30; Start 09/12/18 at 09:00; Stop 09/12/18 at 17:14; Status DC Escitalopram Oxalate (Lexapro) 25 mg DAILY PO Last administered on 09/11/18at 08:29; Start 09/11/18 at 09:00; Stop 09/11/18 at 14:44; Status DC Escitalopram Oxalate (Lexapro) 30 mg DAILY PO Last administered on 09/10/18 08:30; Start 08/29/18 at 09:00; Stop 09/10/18 at 17:33; Status DC Fexofenadine HCl (Sho) 180 mg QAM PO Last administered on 09/18/18at 08:42; Start 09/06/18 at 09:00 Guaifenesin (Mucinex Tab Er) 600 mg BID PO Last administered on 09/18/18 08:41; Start 08/28/18 at 09:00 Home Med (Med Rec Complete!) ASDIRECTED XX ; Start 08/27/18 at 23:00; Stop 08/27/18 at 23:00; Status DC Ibuprofen (Advil) 600 mg Q6H PO Last administered on 09/15/18 11:54; Start 09/08/18 at 18:00 Magnesium Hydroxide (Milk Of Magnesia) 30 ml DAILYPRN PRN PO CONSTIPATION Last administered on 09/11/18 12:35; Start 08/27/18 at 23:00 Magnesium Citrate (Citrate Of Magnesia) 150 ml DAILYPRN PRN PO constipation Last administered on 09/13/18 09:11; Start 09/12/18 at 17:15 Magnesium Oxide (Mag-Ox) 400 mg DAILY PRN PO constipation Last administered on 09/12/18 17:33; Start 09/11/18 at 14:45 Phenylephrine HCl (Neosynephrine 0.25% Nasal [place]) 2 spray Q4HP PRN NA NASAL CONGESTION; Start 09/04/18 at 16:45 Ramelteon (Rozerem) 4 mg QHS PO Last administered on 09/17/18 20:51; Start 09/14/18 at 21:00 Ramelteon (Rozerem) 8 mg QHS PO Last administered on 09/13/18 19:52; Start 09/12/18 at 21:00; Stop 09/14/18 at 18:53; Status DC Trazodone HCl (Desyrel) 50 mg QHSP PRN PO INSOMNIA Last administered on 09/11/18 20:43; Start 08/27/18 at 23:00; Stop 09/12/18 at 17:19; Status DC Allergies Coded Allergies: No Known Allergies (Unverified , 08/27/18) ACOSTA WONG DO Sep 18, 2018 11:24
[2018-09-18 18:06] VITALS: BP 127/75
[2018-09-18] MEDS ORDERED: RAMELTEON 8 MG TAB (ROZEREM) PO SCH (21:00)
[2018-09-19] MEDS: IBUPROFEN 600 MG TAB PO SCH ×4 (06:00→18:00)
[2018-09-19 06:19] VITALS: BP 125/73
[2018-09-19] MEDS ORDERED: ESCITALOPRAM OXALATE 5MG TABLET (LEXAPRO) PO SCH (09:00)
[2018-09-19] MEDS ORDERED: buPROPion **XL** TABLET 150MG (WELLBUTRIN XL) PO SCH (09:00)
[2018-09-19] MEDS: DOCUSATE SODIUM 100 MG CAP PO SCH ×2 (09:01→21:00)
[2018-09-19] MEDS: guaiFENesin ER 600 MG TAB PO SCH ×2 (09:01→21:00)
[2018-09-19] MEDS: FEXOFENADINE 60 MG TAB PO SCH (09:01)
--- NOTE | 2018-09-19 10:35 | MHDSPDOC ---
[facility] Discharge Summary Discharge Summary DATE OF ADMISSION: Aug 27, 2018 at 22:49 DATE OF DISCHARGE: 09/20/18 Discharge Ness Larkin Age 23 Male Date of : 1995 Date of Service: 09/19/2018 Diagnoses Major depressive disorder, severe with atypical features. Borderline personality disorder. 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 Consultants Involved Hospitalist/PCP screening Treatment and Progress On The Unit The patient was admitted to the unit with suicidal thoughts and an initial impr ession by the prior treating physician of bipolar disorder. However, after making little progress on Lexapro and Abilify subsequently the patient underwent psychometry, which revealed likely major depression and borderline personality disorder with no trace of bipolar. He was subsequently titrated off of the Lexapro slowly and titrate up to a dose of 450 mg of extend release Wellbutrin. His sleeping med of trazodone was changed to Rozerem and he did well at 8 mg nightly. He subsequently was triaged for long-term care after a protracted discussion due to the [employer] [facility] concern that the symptoms were malingered. The testing was quite clear that the patient was suffering from depression, but did additionally have chronic borderline traits that likely put him in situations where his anxiety will be exacerbated. 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 Discharge Assessment The patient, a 23-year-old man with major depression and borderline personality disorder, was able to get some beneficial treatment from Wellbutrin and Rozerem, however, his long-term chronic traits likely predispose him to developing fairly severe suicidal thoughts and depression. Mental Status Examination General: Fair hygiene Speech: Spontaneous and fluid Thought processes: Linear and logical MSK: Smooth and coordinated gait, no signs of tremors or involuntary orofacial movements Thought content: Future orientated Abstract reasoning, and computation: Intact Description of associations: Intact Description of abnormal or psychotic thoughts: Denies suicidal ideation on this visit. No homicidal ideation. Does not appear to be responding to internal stimuli Judgment: Improving Insight: Improving Orientation: Alert and orientated 3 Cognition: Grossly normal Recent and remote memory: Intact Attention span and concentration: Intact Fund of knowledge: Adequate Mood: "okay" Affect: Dysthymic with a constricted range Follow Up The social work team worked during the predischarge meeting in order to evaluate for further issues of lethality address them fully before discharge. They worked on safety planning with the patient's family members in order to ensure that the patient will have a safe and effective discharge. Discharge medications of Wellbutrin 450 mg daily and Rozerem 8 mg nightly. He additionally was treated with magnesium citrate for constipation. Time Spent The amount of time spent in the coordination of care for this patient was approximately 30 minutes. Vital Signs/I&Os Vital Signs Date Time Temp Pulse Resp B/P (MAP) Pulse Ox O2 Delivery O2 Flow Rate FiO2 09/19/18 08:12 Room Air 09/19/18 06:19 98.3 80 18 125/73 (90) Medications Scheduled Loratadine (Claritin) 10 Mg Tablet, 10 MG PO DAILY, (Reported) Scheduled PRN Albuterol Sulfate (Ventolin Hfa) 18 Gm Hfa.aer.ad, 2 PUFF INH QID PRN for SHORTNESS OF BREATH, (Reported) Fluticasone Propionate (Flonase Allergy Relief) 9.9 Ml Deport.susp, 1 SPRAY NA B ID PRN for NASAL CONGESTION, (Reported) Allergies Coded Allergies: No Known Allergies (Unverified , 08/27/18) ACOSTA WONG DO Sep 19, 2018 10:35
[2018-09-19] MEDS ORDERED: RAMELTEON 8 MG TAB (ROZEREM) PO SCH (18:00)
[2018-09-19 18:09] VITALS: BP 134/81
[2018-09-20] MEDS: IBUPROFEN 600 MG TAB PO SCH
[2018-09-20] MEDS ORDERED: buPROPion **XL** TABLET 150MG (WELLBUTRIN XL) PO SCH (02:30)
== END 2018-09-20 04:17 | DRG 885 ==
LOC: M ED 21:08 → M ED INP 22:49 → M PSY 23:28
PROVIDERS: ADMIT Psychiatry & Neurology Psychiatry; ATTEND Psychiatry & Neurology Addiction Medicine
DX: F32.2 Major depressive disorder, single episode, severe without psychotic features (principal); F41.1 Generalized anxiety disorder; F43.9 Reaction to severe stress, unspecified; Z63.4 Disappearance and death of family member; Z79.899 Other long term (current) drug therapy; M25.562 Pain in left knee; E66.9 Obesity, unspecified; J30.2 Other seasonal allergic rhinitis; F45.22 Body dysmorphic disorder; Z56.5 Uncongenial work environment; Z63.0 Problems in relationship with spouse or partner; F60.3 Borderline personality disorder; Z59.9 Problem related to housing and economic circumstances, unspecified; K59.00 Constipation, unspecified; Z68.37 Body mass index [BMI] 37.0-37.9, adult